=== PATIENT | male | born 1970 | race Caucasian/White ===

== ENCOUNTER → 2018-01-17 | Outpatient (CLI) | payer BC ==
--- NOTE | 2018-01-17 13:29 | US ---
EXAMINATION TYPE: US kidneys/renal and bladder DATE OF EXAM: 01/17/2018 COMPARISON: NONE CLINICAL HISTORY: N28.1 CYST OF KIDNEY. Known renal cysts, no symptoms EXAM MEASUREMENTS: Right Kidney: 12.4 x 5.9 x 7.1 cm Left Kidney: 13.9 x 6.6 x 6.3 cm Right Kidney: multiple cysts seen, measured largest for comparison from previous study, superior pole = 3.7cm Left Kidney: multiple cyst seen, measured largest for comparison from previous study, lower 6.5cm Bladder: wnl Bilateral Jets seen: Yes There is no evidence for hydronephrosis at this point in time. No nephrolithiasis is seen. The urin iman bladder is anechoic. Bilateral ureteral jets are seen. Hepatic cysts are incidentally identified . IMPRESSION: Multiple bilateral renal cysts. The largest on the left measures 6.5 cm and previously measured 5.5 c m and the largest on the right measures 3.7 cm and previously measured 2.9 cm. Other smaller renal le sions are also likely cystic although further characterization with enhanced CT is recommended as no recent prior is available for comparison.
== END | disposition home or self-care (01) ==
LOC: RADUSWWP 07:26
PROVIDERS: ATTEND Family Medicine
DX: N28.1 Cyst of kidney, acquired (principal)
CPT/HCPCS: 76770

== ENCOUNTER 2019-05-25 02:40 | Inpatient (IN) | payer BC ==
[2019-05-25] MEDS ORDERED: KETOROLAC 30 MG/ML 1 ML VIAL IVP STA (03:01)
[2019-05-25] MEDS ORDERED: ONDANSETRON 4 MG/2 ML VIAL IVP STA (03:01)
[2019-05-25] MEDS ORDERED: SODIUM CHLORIDE 0.9% 1,000 ML IV STA (03:01)
[2019-05-25 03:50] LABS: Basophils % (A) 0 %; Eosinophils # (A) 0.1 k/uL (0-0.7); Eosinophils % (A) 1 %; HCT 44.3 % (39.0-53.0); HGB 16.1 gm/dL (13.0-17.5); Lymphocytes # (A) 1.5 k/uL (1.0-4.8); Lymphocytes % (A) 17 %; MCH 31.6 pg (25.0-35.0); MCHC 36.3 g/dL (31.0-37.0); MCV 87.2 fL (80.0-100.0); Mean Platelet Volume 5.9; Monocytes % (A) 11 %; Neutrophils % (A) 68 %; Platelet Count 206 k/uL (150-450); RBC 5.08 m/uL (4.30-5.90); RDW 12.7 % (11.5-15.5); WBC 8.8 k/uL (3.8-10.6)
[2019-05-25 03:55] LABS: Appearance,Urine Clear (Clear); Bilirubin,Urine Negative (Negative); Blood,Urine Moderate (Negative); Color,Urine Light Yellow; Glucose,Urine (UA) Negative (Negative); Ketones,Urine Negative (Negative); Leukocyte Esterase,Urine Negative (Negative); Mucus,Urine Rare /hpf; Nitrite,Urine Negative (Negative); Protein,Urine Negative (Negative); RBC,Urine 3 /hpf (0-5); Specific Gravity,Urine 1.008 (1.001-1.035); Urobilinogen,Urine <2.0 mg/dL (<2.0); WBC,Urine <1 /hpf (0-5)
--- NOTE | 2019-05-25 04:01 | ED ---
Abdominal Pain HPI - General Source: patient Mode of arrival: ambulatory Limitations: no limitations <Carmenza Han - Last Filed: 05/25/19 18:29> <Arturo Cifuentes - Last Filed: 05/28/19 03:02> - General Chief Complaint: Abdominal Pain Stated Complaint: R Abd/ Back Pain Time Seen by Provider: 05/25/19 02:58 - History of Present Illness Initial Comments: 49-year-old male presenting today for chief complaint of right-sided flank pain. Patient states that around 11 PM he began experiencing left-sided flank pain. He states he did have some symptoms earlier and dark colored urine however he thought this was due to dehydration. Patient denies chest pain, SOB. Patient denies diarrhea, vomiting, fevers. Patient denies abdominal pain. Remaining ROS (-), denies trauma falls. BP elevated on arrival patient appears uncomfortable. (Carmenza Han) - Related Data Home Medications Medication Instructions Recorded Confirmed Catalyn Multivitamin 1 tab PO DAILY 05/25/19 05/25/19 Lisinopril [Zestril] 10 mg PO DAILY 05/25/19 05/25/19 Metoprolol Succinate (ER) [Toprol 100 mg PO DAILY 05/25/19 05/25/19 Xl] [place]-3 Fatty Acids/Fish Oil [Fish 1 tab PO DAILY 05/25/19 05/25/19 Oil 1,000 mg Softgel] Pantoprazole [Protonix] 40 mg PO DAILY 05/25/19 05/25/19 Renafood Supplement 1 tab PO DAILY 05/25/19 05/25/19 Allergies Allergy/AdvReac Type Severity Reaction Status Date / Time No Known Allergies Allergy Verified 05/25/19 08:12 Review of Systems ROS Other: All systems not noted in ROS Statement are negative. <Carmenza Han - Last Filed: 05/25/19 18:29> ROS Other: All systems not noted in ROS Statement are negative. <Arturo Cifuentes - Last Filed: 05/28/19 03:02> ROS Statement: Those systems with pertinent positive or pertinent negative responses have been documented in the HPI. Past Medical History Past Medical History: Hypertension Additional Past Medical History / Comment(s): polycystic kidney disease History of Any Multi-Drug Resistant Organisms: None Reported Past Surgical History: Bowel Resection Past Psychological History: No Psychological Hx Reported Smoking Status: Never smoker Past Alcohol Use History: Occasional Past Drug Use History: None Reported - Past Family History Father Family Medical History: Cancer Additional Family Medical History / Comment(s): <Carmenza Han Becky - Last Filed: 05/25/19 18:29> General Exam Limitations: no limitations <Carmenza Han - Last Filed: 05/25/19 18:29> - General Exam Comments Initial Comments: General: The patient is awake and alert, in no distress, and does not appear acutely ill. Eye: +3 mm pupils are equal, round and reactive to light, extra-ocular movements are intact. No nystagmus. There is normal conjunctiva bilaterally. No signs of icterus. Ears, nose, mouth and throat: There are moist mucous membranes and no oral lesions. Neck: The neck is supple, there is no tenderness or JVD. Cardiovascular: There is a regular rate and rhythm. No murmur, rub or gallop is appreciated. Respiratory: Lungs are clear to auscultation, respirations are non-labored, breath sounds are equal. No wheezes, stridor, rales, or rhonchi. Gastrointestinal: Soft, non-distended, non-tender abdomen without masses or organomegaly noted. There is no rebound or guarding present. No CVA tenderness. Musculoskeletal: Normal ROM, no tenderness. Strength 5/5. Sensation intact. Radial pulses equal bilaterally 2+. Neurological: A&O x 3. CN II-XII intact grossly, There are no obvious motor or sensory deficits. Coordination appears grossly intact. Speech is normal. Skin: Skin is warm and dry and no rashes or lesions are noted. Psychiatric: Cooperative, appropriate mood & affect, normal judgment. (Carmenza Han) Course Vital Signs 05/25/19 05/25/19 02:50 03:59 Temperature 97.5 F L Pulse Rate 89 92 Respiratory 20 18 Rate Blood Pressure 165/104 135/89 O2 Sat by Pulse 98 96 Oximetry Medical Decision Making - Lab Data Result diagrams: 05/25/19 03:18 05/25/19 03:18 <Carmenza Han - Last Filed: 05/25/19 18:29> - Lab Data Result diagrams: 05/25/19 03:18 05/27/19 06:51 <Arturo Cifuentes - Last Filed: 05/28/19 03:02> - Medical Decision Making 49-year-old male history of polycystic kidney disease presenting today for chief complaint of flank pain patient given Toradol. This relieved pain CT revealed numerous stones however none appear to be in the ureters. Cysts noted as well. No other acute process. Patient Cr found to be nearly double that of baseline as well as increase in BUN. Patient given IVF, will be admitted for DANTE, repeat CMP after hydration. Dr. Cifuentes agreeable to admission as well as patient. (Carmenza Han) I saw this patient in conjunction with the physician teachers assistant. I performed independent history and physical exam. Agree with case management. (Arturo Sutherland) - Lab Data Lab Results 05/25/19 05/25/19 05/25/19 Range/Units 03:18 03:18 03:18 WBC 8.8 (3.8-10.6) k/uL RBC 5.08 (4.30-5.90) m/uL Hgb 16.1 (13.0-17.5) gm/dL Hct 44.3 (39.0-53.0) % MCV 87.2 (80.0-100.0) fL MCH 31.6 (25.0-35.0) pg MCHC 36.3 (31.0-37.0) g/dL RDW 12.7 (11.5-15.5) % Plt Count 206 (150-450) k/uL Neutrophils % 68 % Lymphocytes % 17 % Monocytes % 11 % Eosinophils % 1 % Basophils % 0 % Neutrophils # 6.0 (1.3-7.7) k/uL Lymphocytes # 1.5 (1.0-4.8) k/uL Monocytes # 1.0 (0-1.0) k/uL Eosinophils # 0.1 (0-0.7) k/uL Basophils # 0.0 (0-0.2) k/uL Sodium 137 (137-145) mmol/L Potassium 4.0 (3.5-5.1) mmol/L Chloride 102 (98-107) mmol/L Carbon Dioxide 23 (22-30) mmol/L Anion Gap 12 mmol/L BUN 45 H (9-20) mg/dL Creatinine 2.58 H (0.66-1.25) mg/dL Est GFR (CKD-EPI)AfAm 32 (>60 ml/min/1.73 sqM) Est GFR (CKD-EPI)NonAf 28 (>60 ml/min/1.73 sqM) Glucose 141 H (74-99) mg/dL Calcium 9.1 (8.4-10.2) mg/dL Total Bilirubin 1.0 (0.2-1.3) mg/dL AST 39 (17-59) U/L ALT 75 H (21-72) U/L Alkaline Phosphatase 89 (38-126) U/L Troponin I (0.000-0.034) ng/mL Total Protein 7.3 (6.3-8.2) g/dL Albumin 4.3 (3.5-5.0) g/dL Amylase 57 (30-110) U/L Lipase 204 (23-300) U/L Urine Color Light Yellow Urine Appearance Clear (Clear) Urine pH 5.0 (5.0-8.0) Ur Specific [place] 1.008 (1.001-1.035) Urine Protein Negative (Negative) Urine Glucose (UA) Negative (Negative) Urine Ketones Negative (Negative) Urine Blood Moderate H (Negative) Urine Nitrite Negative (Negative) Urine Bilirubin Negative (Negative) Urine Urobilinogen <2.0 (<2.0) mg/dL Ur Leukocyte Esterase Negative (Negative) Urine RBC 3 (0-5) /hpf Urine WBC <1 (0-5) /hpf Urine Mucus Rare H (None) /hpf 05/25/19 05/25/19 05/25/19 Range/Units 11:34 17:47 22:32 WBC (3.8-10.6) k/uL RBC (4.30-5.90) m/uL Hgb (13.0-17.5) gm/dL Hct (39.0-53.0) % MCV (80.0-100.0) fL MCH (25.0-35.0) pg MCHC (31.0-37.0) g/dL RDW (11.5-15.5) % Plt Count (150-450) k/uL Neutrophils % % Lymphocytes % % Monocytes % % Eosinophils % % Basophils % % Neutrophils # (1.3-7.7) k/uL Lymphocytes # (1.0-4.8) k/uL Monocytes # (0-1.0) k/uL Eosinophils # (0-0.7) k/uL Basophils # (0-0.2) k/uL Sodium 138 (137-145) mmol/L Potassium 4.1 (3.5-5.1) mmol/L Chloride 109 H (98-107) mmol/L Carbon Dioxide 21 L (22-30) mmol/L Anion Gap 8 mmol/L BUN 41 H (9-20) mg/dL Creatinine 2.94 H (0.66-1.25) mg/dL Est GFR (CKD-EPI)AfAm 27 (>60 ml/min/1.73 sqM) Est GFR (CKD-EPI)NonAf 24 (>60 ml/min/1.73 sqM) Glucose 113 H (74-99) mg/dL Calcium 8.4 (8.4-10.2) mg/dL Total Bilirubin (0.2-1.3) mg/dL AST (17-59) U/L ALT (21-72) U/L Alkaline Phosphatase (38-126) U/L Troponin I <0.012 <0.012 (0.000-0.034) ng/mL Total Protein (6.3-8.2) g/dL Albumin (3.5-5.0) g/dL Amylase (30-110) U/L Lipase (23-300) U/L Urine Color Urine Appearance (Clear) Urine pH (5.0-8.0) Ur Specific [place] (1.001-1.035) Urine Protein (Negative) Urine Glucose (UA) (Negative) Urine Ketones (Negative) Urine Blood (Negative) Urine Nitrite (Negative) Urine Bilirubin (Negative) Urine Urobilinogen (<2.0) mg/dL Ur Leukocyte Esterase (Negative) Urine RBC (0-5) /hpf Urine WBC (0-5) /hpf Urine Mucus (None) /hpf 05/26/19 Range/Units 09:35 WBC (3.8-10.6) k/uL RBC (4.30-5.90) m/uL Hgb (13.0-17.5) gm/dL Hct (39.0-53.0) % MCV (80.0-100.0) fL MCH (25.0-35.0) pg MCHC (31.0-37.0) g/dL RDW (11.5-15.5) % Plt Count (150-450) k/uL Neutrophils % % Lymphocytes % % Monocytes % % Eosinophils % % Basophils % % Neutrophils # (1.3-7.7) k/uL Lymphocytes # (1.0-4.8) k/uL Monocytes # (0-1.0) k/uL Eosinophils # (0-0.7) k/uL Basophils # (0-0.2) k/uL Sodium 140 (137-145) mmol/L Potassium 4.0 (3.5-5.1) mmol/L Chloride 110 H (98-107) mmol/L Carbon Dioxide 22 (22-30) mmol/L Anion Gap 8 mmol/L BUN 36 H (9-20) mg/dL Creatinine 3.10 H (0.66-1.25) mg/dL Est GFR (CKD-EPI)AfAm 26 (>60 ml/min/1.73 sqM) Est GFR (CKD-EPI)NonAf 22 (>60 ml/min/1.73 sqM) Glucose 121 H (74-99) mg/dL Calcium 8.5 (8.4-10.2) mg/dL Total Bilirubin (0.2-1.3) mg/dL AST (17-59) U/L ALT (21-72) U/L Alkaline Phosphatase (38-126) U/L Troponin I (0.000-0.034) ng/mL Total Protein (6.3-8.2) g/dL Albumin (3.5-5.0) g/dL Amylase (30-110) U/L Lipase (23-300) U/L Urine Color Urine Appearance (Clear) Urine pH (5.0-8.0) Ur Specific [place] (1.001-1.035) Urine Protein (Negative) Urine Glucose (UA) (Negative) Urine Ketones (Negative) Urine Blood (Negative) Urine Nitrite (Negative) Urine Bilirubin (Negative) Urine Urobilinogen (<2.0) mg/dL Ur Leukocyte Esterase (Negative) Urine RBC (0-5) /hpf Urine WBC (0-5) /hpf Urine Mucus (None) /hpf Disposition Is patient prescribed a controlled substance at d/c from ED?: No Time of Disposition: 04:24 <Carmenza Han - Last Filed: 05/25/19 18:29> <Arturo Cifuentes - Last Filed: 05/28/19 03:02> Clinical Impression: DANTE (acute kidney injury) Disposition: ADMITTED IP TO THIS HOSP Condition: Stable
--- NOTE | 2019-05-25 04:02 | CT ---
EXAMINATION TYPE: CT abdomen pelvis wo con DATE OF EXAM: 05/25/2019 COMPARISON: 11/11/2011 HISTORY: right flank pain CT DLP: 1055.4 mGycm Automated exposure control for dose reduction was used. TECHNIQUE: Helical acquisition of images was performed from the lung bases through the pelvis. FINDINGS: There is mild subsegmental atelectasis at the lung bases. There are multiple cysts in the liver that measure up to 3 cm. Gallbladder appears normal. Spleen appears normal. Stomach appears normal. There is no evidence of pancreatic mass. Gallbladder appears normal. There is no adrenal mass. There are numerous cysts in both kidneys. The renal cysts measure up to 6 c m. There are numerous calcifications in both kidneys up to 8 mm. There are small cortical cysts that contain calcium also. The ureters are not dilated. The bladder is almost empty. There is no inguinal hernia. There is no free fluid in the pelvis. There is no mesenteric edema. There is no ascites. Ther e is no sign of free air. The appendix appears normal. There are multiple appendicoliths. There is no evidence of a bowel obstruction. Lumbar vertebra have normal alignment. There is narrowing at L5-S1 disc space. There is no compressio n fracture. Bony pelvis appears intact. IMPRESSION: THERE ARE NUMEROUS HEPATIC AND RENAL CYSTS WHICH ARE INCREASED IN SIZE COMPARED TO OLD CT SCAN. NUMER OUS NONOBSTRUCTING RENAL CALCULI INCREASED COMPARED TO OLD EXAM. NO EVIDENCE OF APPENDICITIS.
[2019-05-25 04:04] LABS: Albumin 4.3 g/dL (3.5-5.0); Calcium 9.1 mg/dL (8.4-10.2); Total Protein 7.3 g/dL (6.3-8.2)
[2019-05-25] MEDS ORDERED: NALOXONE 0.4 MG/ML 1 ML VIAL IV PRN (04:23)
[2019-05-25] MEDS: SODIUM CHLORIDE 0.9% 1,000 ML IV SCH ×2 (04:41→15:10)
[2019-05-25] MEDS: ACETAMINOPHEN TAB 325 MG TAB PO PRN ×3 (09:01→21:40)
[2019-05-25] MEDS ORDERED: FAMOTIDINE 20 MG TAB PO SCH (10:30)
[2019-05-25] MEDS ORDERED: HYDROmorphone 0.5 MG/0.5 ML SYRINGE IVP PRN (11:11)
--- NOTE | 2019-05-25 13:00 | P.HPIM ---
History of Present Illness Patient is a pleasant 49-year-old male came in with complaints of right flank pain sharp in nature severe yesterday presently 2/10 in severity after Tylenol. Patient had an abdominal CAT scan which showed multiple nonobstructing nep hrolithiasis which is probably contributing to his pain additionally patient is found to have poor renal function with serum creatinine of 2.58. His creatinine 2014 was 1.4 I do not have any labs after that. Patient is also complaining of mild noncardiac chest pain because of which are tender troponin and EKG both of which are negative I'll obtain another troponin 6 hours patient pain in the [address] is very minimal sharp nonspecific nonradiating constant has been going on for sometime appears to be musculoskeletal. Patient is also found to have multiple cysts in both bilateral kidneys along with cyst in the liver admits to history of polycystic kidney disease. Review of Systems REVIEW OF SYSTEMS: CONSTITUTIONAL: No fever, no malaise, no fatigue. HEENT: No recent visual problems or hearing problems. Denied any sore throat. CARDIOVASCULAR: No orthopnea, PND, no palpitations, no syncope. PULMONARY: No shortness of breath, no cough, no hemoptysis. GASTROINTESTINAL: As mentioned in HPI NEUROLOGICAL: No headaches, no weakness, no numbness. HEMATOLOGICAL: Denies any bleeding or petechiae. GENITOURINARY: Denies any burning micturition, frequency, or urgency. MUSCULOSKELETAL/RHEUMATOLOGICAL: Denies any joint pain, swelling, or any muscle pain. ENDOCRINE: Denies any polyuria or polydipsia. The rest of the 14-point review of systems is negative. Past Medical History Past Medical History: Hypertension Additional Past Medical History / Comment(s): polycystic kidney disease History of Any Multi-Drug Resistant Organisms: None Reported Past Surgical History: Bowel Resection Past Psychological History: No Psychological Hx Reported Smoking Status: Never smoker Past Alcohol Use History: Occasional Past Drug Use History: None Reported - Past Family History Father Family Medical History: Cancer Additional Family Medical History / Comment(s): Medications and Allergies Home Medications Medication Instructions Recorded Confirmed Type Catalyn Multivitamin 1 tab PO DAILY 05/25/19 05/25/19 History Lisinopril [Zestril] 10 mg PO DAILY 05/25/19 05/25/19 History Metoprolol Succinate (ER) [Toprol 100 mg PO DAILY 05/25/19 05/25/19 History Xl] [place]-3 Fatty Acids/Fish Oil [Fish 1 tab PO DAILY 05/25/19 05/25/19 History Oil 1,000 mg Softgel] Pantoprazole [Protonix] 40 mg PO DAILY 05/25/19 05/25/19 History Renafood Supplement 1 tab PO DAILY 05/25/19 05/25/19 History Allergies Allergy/AdvReac Type Severity Reaction Status Date / Time No Known Allergies Allergy Verified 05/25/19 08:12 Physical Exam Vitals: Vital Signs Temp Pulse Pulse Resp BP BP Pulse Ox 05/25/19 07:20 97.7 F 72 16 168/96 98 05/25/19 03:59 92 18 135/89 96 05/25/19 02:50 97.5 F L 89 20 165/104 98 Intake and Output 05/24/19 05/25/19 05/25/19 22:59 06:59 14:59 Other: Weight 99.79 kg PHYSICAL EXAMINATION: GENERAL: The patient is alert and oriented x3, not in any acute distress. Well developed, well nourished. HEENT: Pupils are round and equally reacting to light. EOMI. No scleral icterus. No conjunctival pallor. Normocephalic, atraumatic. No pharyngeal erythema. No thyromegaly. CARDIOVASCULAR: S1 and S2 present. No murmurs, rubs, or gallops. PULMONARY: Chest is clear to auscultation, no wheezing or crackles. ABDOMEN: Soft, nontender, nondistended, normoactive bowel sounds. No palpable organomegaly. MUSCULOSKELETAL: No joint swelling or deformity. EXTREMITIES: No cyanosis, clubbing, or pedal edema. NEUROLOGICAL: Gross neurological examination did not reveal any focal deficits. SKIN: No rashes. Results CBC & Chem 7: 05/25/19 03:18 05/25/19 03:18 Labs: Abnormal Lab Results - Last 24 Hours (Table) 05/25/19 05/25/19 Range/Units 03:18 03:18 BUN 45 H (9-20) mg/dL Creatinine 2.58 H (0.66-1.25) mg/dL Glucose 141 H (74-99) mg/dL ALT 75 H (21-72) U/L Urine Blood Moderate H (Negative) Urine Mucus Rare H (None) /hpf Thrombosis Risk Factor Assmnt - Choose All That Apply Each Factor Represents 1 point: Age 41-60 years, Obesity (BMI >25) Other Risk Factors: No Other congenital or acquired thrombophilia - If yes, enter type in comment: No Thrombosis Risk Factor Assessment Total Risk Factor Score: 2 Thrombosis Risk Factor Assessment Level: Low Risk Assessment and Plan Plan: -Right flank pain probably secondary to nephrolithiasis patient has nonobstructive stones will continue with IV fluids continue with Tylenol and hydromorphone for pain and avoid morphine and nonsteroidal anti-inflammatory medications because of his renal dysfunction. -Renal failure: Patient most probably has chronic kidney disease from polycystic kidney disease unsure whether patient has a competent of acute renal failure, continue with IV fluids nephrology will be consulted. 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
[2019-05-25] MEDS: LISINOPRIL 10 MG TAB PO SCH (15:49)
--- NOTE | 2019-05-25 22:44 | P.GSCN ---
History of Present Illness Consult date: 05/25/19 Reason for Consult: polycystic kidney disease, nephrolithiasis History of present illness: Mr. Lerma is 49 yo male, admitted to the hospital with a DANTE and right flank pain. He indicated the right flank pain has been sudden in onset and is associated with nausea without vomiting. Of note he has history of nephrolithiasis and he believes that he passed a stone approximately a month ago. He also has a known history of polycystic kidney disease, on admission his creatinine was 2.58, his last known creatinine was 1.41 back in 2013. Today on evaluation he complains of mild flank pain, indicated it is improved compared to presentation. He denies any urinary symptoms. Review of CT showed multiple bilateral renal cysts, he also has a 5 mm proximal ureteral stone on the right side with mild right-sided hydronephrosis Review of Systems - Constitutional Denies chills, Denies fever - EENT Ears, nose, mouth and throat: Denies headache, Denies voice changes - Cardiovascular Denies dyspnea on exertion, Denies leg edema - Respiratory Denies cough, Denies dyspnea - Gastrointestinal Reports abdominal pain, Reports nausea, Denies vomiting - Genitourinary Reports flank pain, Reports kidney stones, Denies dysuria, Denies hematuria - Neurological Denies confusion, Denies weakness Past Medical History Past Medical History: Hypertension Additional Past Medical History / Comment(s): polycystic kidney disease History of Any Multi-Drug Resistant Organisms: None Reported Past Surgical History: Bowel Resection Past Psychological History: No Psychological Hx Reported Smoking Status: Never smoker Past Alcohol Use History: Occasional Past Drug Use History: None Reported - Past Family History Father Family Medical History: Cancer Additional Family Medical History / Comment(s): Medications and Allergies Home Medications Medication Instructions Recorded Confirmed Type Catalyn Multivitamin 1 tab PO DAILY 05/25/19 05/25/19 History Lisinopril [Zestril] 10 mg PO DAILY 05/25/19 05/25/19 History Metoprolol Succinate (ER) [Toprol 100 mg PO DAILY 05/25/19 05/25/19 History Xl] [place]-3 Fatty Acids/Fish Oil [Fish 1 tab PO DAILY 05/25/19 05/25/19 History Oil 1,000 mg Softgel] Pantoprazole [Protonix] 40 mg PO DAILY 05/25/19 05/25/19 History Renafood Supplement 1 tab PO DAILY 05/25/19 05/25/19 History Allergies Allergy/AdvReac Type Severity Reaction Status Date / Time No Known Allergies Allergy Verified 05/25/19 08:12 Surgical - Exam Vital Signs Temp Pulse Resp BP Pulse Ox 97.5 F L 89 20 165/104 98 05/25/19 02:50 05/25/19 02:50 05/25/19 02:50 05/25/19 02:50 05/25/19 02:50 - General well developed, well nourished, no distress - ENT normal mucosa, no hearing loss - Respiratory normal expansion, normal respiratory effort - Musculoskeletal normal gait, normal posture - Psychiatric oriented to time, oriented to person, oriented to place Results - Labs 05/25/19 03:18 05/25/19 03:18 Abnormal Lab Results - Last 24 Hours (Table) 05/25/19 05/25/19 Range/Units 03:18 03:18 BUN 45 H (9-20) mg/dL Creatinine 2.58 H (0.66-1.25) mg/dL Glucose 141 H (74-99) mg/dL ALT 75 H (21-72) U/L Urine Blood Moderate H (Negative) Urine Mucus Rare H (None) /hpf Diabetes panel 05/25/19 Range/Units 03:18 Sodium 137 (137-145) mmol/L Potassium 4.0 (3.5-5.1) mmol/L Chloride 102 (98-107) mmol/L Carbon Dioxide 23 (22-30) mmol/L BUN 45 H (9-20) mg/dL Creatinine 2.58 H (0.66-1.25) mg/dL Glucose 141 H (74-99) mg/dL Calcium 9.1 (8.4-10.2) mg/dL AST 39 (17-59) U/L ALT 75 H (21-72) U/L Alkaline Phosphatase 89 (38-126) U/L Total Protein 7.3 (6.3-8.2) g/dL Albumin 4.3 (3.5-5.0) g/dL Calcium panel 05/25/19 Range/Units 03:18 Calcium 9.1 (8.4-10.2) mg/dL Albumin 4.3 (3.5-5.0) g/dL Pituitary panel 05/25/19 Range/Units 03:18 Sodium 137 (137-145) mmol/L Potassium 4.0 (3.5-5.1) mmol/L Chloride 102 (98-107) mmol/L Carbon Dioxide 23 (22-30) mmol/L BUN 45 H (9-20) mg/dL Creatinine 2.58 H (0.66-1.25) mg/dL Glucose 141 H (74-99) mg/dL Calcium 9.1 (8.4-10.2) mg/dL Adrenal panel 05/25/19 Range/Units 03:18 Sodium 137 (137-145) mmol/L Potassium 4.0 (3.5-5.1) mmol/L Chloride 102 (98-107) mmol/L Carbon Dioxide 23 (22-30) mmol/L BUN 45 H (9-20) mg/dL Creatinine 2.58 H (0.66-1.25) mg/dL Glucose 141 H (74-99) mg/dL Calcium 9.1 (8.4-10.2) mg/dL Total Bilirubin 1.0 (0.2-1.3) mg/dL AST 39 (17-59) U/L ALT 75 H (21-72) U/L Alkaline Phosphatase 89 (38-126) U/L Total Protein 7.3 (6.3-8.2) g/dL Albumin 4.3 (3.5-5.0) g/dL - Imaging CT scan - abdomen: other (right sided 5 mm proximal stone with mild hydronephrosis) Assessment and Plan Assessment: Mr. Lerma is 49 yo male admitted with right-sided flank pain and acute kidney injury. Creat 2.58, last creat from 2013 was 1.41. He has a known history of polycystic kidney disease. Review of CT showed a 5 mm right-sided proximal ureteral stone with mild hydronephrosis. Plan: -Repeat BMP tonight, -NPO past MN -If creatinine is trending down and patient pain improves then he can have medical expulsive and can hold off on a ureteral stent. If creatinine is trending up or patient continues to have pain then we'll plan on going to the OR for ureteral stent placement
[2019-05-25 23:17] LABS: Calcium 8.4 mg/dL (8.4-10.2); Potassium 4.1 mmol/L (3.5-5.1)
[2019-05-26] MEDS: SODIUM CHLORIDE 0.9% 1,000 ML IV SCH ×2 (00:08→10:52)
[2019-05-26] MEDS: LISINOPRIL 10 MG TAB PO SCH (07:50)
[2019-05-26] MEDS: FAMOTIDINE 20 MG TAB PO SCH (07:50)
[2019-05-26] MEDS: METOPROLOL SUCCINATE (ER) 100 MG TAB.ER.24H PO SCH (07:50)
[2019-05-26] MEDS: ACETAMINOPHEN TAB 325 MG TAB PO PRN ×3 (07:57→23:20)
[2019-05-26 09:59] LABS: Calcium 8.5 mg/dL (8.4-10.2)
[2019-05-26] MEDS ORDERED: hydrALAZINE HCL 20 MG/ML 1 ML VIAL IVP PRN (10:36)
--- NOTE | 2019-05-26 10:39 | P.NPCON ---
History of Present Illness - Reason for Consult acute renal failure, chronic renal failure - History of Present Illness Reason for consultation: Acute kidney injury on chronic kidney disease History of present illness: Patient is a 49-year-old male seen in renal consultation for acute kidney injury on chronic kidney disease. Patient has chronic kidney disease stage III with creatinine of 1.4 in May 2016. Etiology is polycystic kidney disease. Patient presented to the hospital due to vomiting and weakness. Patient states his symptoms started Tuesday night. Patient developed right-sided flank pain which also progressively got worse to the point where he came to the hospital night. Patient underwent CAT scan of the abdomen and pelvis which revealed multiple hepatic and renal cysts as well as nonobstructing renal stones. He is being followed by urology. He denies regular use of nonsteroidals. Patient states his mother has polycystic kidney disease and is currently maintained on hemodialysis. No evidence of hypotension. No further vomiting or diarrhea. He is tolerating oral intake. He is receiving IV fluids with normal saline at 100 mL an hour. No abdominal pain. No hematuria or dysuria. Denies fever or chills. Vital signs are stable. General: The patient appeared well nourished and normally developed. HEENT: Head exam is unremarkable. Neck is without jugular venous distension. LUNGS: Lungs are clear to auscultation and percussion. Breath sounds decreased. HEART: Rate and Rhythm are regular. First and second heart sounds normal. No murmurs, rubs or gallops. ABDOMEN: Abdominal exam reveals normal bowel sounds. Non-tender and non- distended. No evidence of peritonitis. EXTREMITITES: No clubbing, cyanosis, or edema. Past Medical History Past Medical History: Hypertension Additional Past Medical History / Comment(s): polycystic kidney disease History of Any Multi-Drug Resistant Organisms: None Reported Past Surgical History: Bowel Resection Past Psychological History: No Psychological Hx Reported Smoking Status: Never smoker Past Alcohol Use History: Occasional Past Drug Use History: None Reported - Past Family History Father Family Medical History: Cancer Additional Family Medical History / Comment(s): Medications and Allergies Home Medications Medication Instructions Recorded Confirmed Type Catalyn Multivitamin 1 tab PO DAILY 05/25/19 05/25/19 History Lisinopril [Zestril] 10 mg PO DAILY 05/25/19 05/25/19 History Metoprolol Succinate (ER) [Toprol 100 mg PO DAILY 05/25/19 05/25/19 History Xl] [place]-3 Fatty Acids/Fish Oil [Fish 1 tab PO DAILY 05/25/19 05/25/19 History Oil 1,000 mg Softgel] Pantoprazole [Protonix] 40 mg PO DAILY 05/25/19 05/25/19 History Renafood Supplement 1 tab PO DAILY 05/25/19 05/25/19 History Allergies Allergy/AdvReac Type Severity Reaction Status Date / Time No Known Allergies Allergy Verified 05/25/19 08:12 Physical Exam Vitals: Vital Signs Temp Pulse Resp BP Pulse Ox 05/26/19 09:15 157/84 05/26/19 07:00 99.0 F 117 H 16 167/109 95 05/26/19 01:19 98.6 F 94 18 156/83 98 05/25/19 19:31 99.2 F 90 18 157/101 95 05/25/19 14:56 97.5 F L 76 12 163/98 98 Intake and Output 05/25/19 05/26/19 05/26/19 22:59 06:59 14:59 Intake Total 1000 Balance 1000 Intake: Intake, IV Titration 1000 Amount Sodium Chloride 0.9% 1, 1000 000 ml @ 100 mls/hr IV . Q10H [facility] Rx#:[id number] Other: Voiding Method Urinal # Voids 3 1 Results - Lab Results Most recent lab results Calcium 8.5 mg/dL (8.4-10.2) 05/26/19 09:35 05/25/19 03:18 05/26/19 09:35 Assessment and Plan Plan: Assessment: 1. Acute kidney injury secondary to ATN secondary to volume depletion. No mention of hydronephrosis noted on CAT scan however he does have bilateral nephrolithiasis. No proteinuria on UA. Creatinine up to 2.1 today. 2. Bilateral nephrolithiasis. Urology following. Potential stent placement this admission. 3. Chronic kidney disease stage III secondary to polycystic kidney disease. Patient's creatinine in May 2016 was 1.4. 4. Hypertension with chronic kidney disease. Plan: I will decrease the rate of normal saline to 75 mL an hour. Discontinue lisinopril. Start amlodipine 5 mg once daily. Add hydralazine 10 mg IV every 4 hours as needed for systolic blood pressure greater than 160. Continue to monitor renal function and urine output. Thank you for the consultation. I will continue to follow the patient with you during his hospital stay.
[2019-05-26] MEDS: amLODIPine 5 MG TAB PO SCH (10:52)
[2019-05-26] MEDS ORDERED: MIDAZOLAM 2 MG/2 ML VIAL ONE (12:30)
[2019-05-26] MEDS ORDERED: IV FLUID CONTINUATION 1,000 ML IV ONE (12:30)
[2019-05-26] MEDS ORDERED: fentaNYL (PF) 50 MCG/ML 2 ML AMP ONE (12:30)
[2019-05-26] MEDS ORDERED: PROPOFOL 10 MG/ML 20 ML VIAL IV ONE (12:30)
[2019-05-26] MEDS ORDERED: ceFAZolin 1,000 MG VIAL ONE (12:30)
[2019-05-26] MEDS ORDERED: LIDOCAINE 1% INJ 10MG/ML (20 ML MDV) ONE (12:30)
[2019-05-26] MEDS ORDERED: SODIUM CHLORIDE 0.9% 100 ML with ceFAZolin 2,000 MG IV ONE ×2 (12:46)
[2019-05-26] MEDS ORDERED: IOPAMIDOL-370 50ML BTL MISCELLANE ONE ×2 (13:12)
[2019-05-26] MEDS ORDERED: LACTATED RINGERS 1,000 ML IV ONE (13:19)
--- NOTE | 2019-05-26 13:46 | P.OP ---
Date of Procedure: 05/26/19 Preoperative Diagnosis: Right ureteral calculi Postoperative Diagnosis: Same Procedure(s) Performed: Cystoscopy, right retrograde pyelogram, ureteral balloon dilation, ureteroscopy, holmium laser lithotripsy, stone basketing, and stent placement Implants: 6-Romanian X 28 cm stent Anesthesia: RAMONA Surgeon: Earl Hendricks Estimated Blood Loss (ml): 5 Pathology: other (stone for analysis) Condition: stable Disposition: floor Indications for Procedure: Mr. Lerma is a 49-year-old male with a 5 mm right proximal ureteral stone. He presented with right-sided flank pain and acute kidney injury. His creatinine continued to trend up since admission, given his continued creatinine rise I discussed with him I recommend that he undergo his ureteroscopy and ureteral stent placement to address his stone and obstruction. I discussed with him the risks including bleeding, infection, injury to the ureter. I also discussed risk of anesthesia. They understood all the risk and agreed to proceed with surgery Operative Findings: Right distal ureteral stone Description of Procedure: The patient was brought to the operating room, general anesthesia was induced. He was prepped and draped in sterile fashion and placed in a dorsal lithotomy position. Cystoscope fitted with a 22 sheath was inserted per urethra cystoscopy was performed which showed no abnormality within the bladder. The right ureteral orifice was intubated with 6-Romanian open-ended catheter, retrograde pyelogram was performed which showed a filling defect in the distal ureter with moderate hydroureteronephrosis. Catheter was removed and a sensor wire was placed. Next a semirigid ureteroscope was inserted per urethra and advanced into the bladder. The ureteroscope could not be advanced up the ureteral orifice the ureteroscope was withdrawn with the wire in place. A ureteral balloon dilator was passed over the wire and the distal ureter was dilated using the balloon dilator. Next a semirigid ureteroscope was reinserted and advanced up the distal ureter the stone was encountered in the distal ureter. Using the holmium laser the stone was fragmented using the laser. The fragments were removed using a stone basket. The fragments were sent for stone analysis. Repeat ureteroscopy showed no residual stone or injury to the ureter. The ureteroscope was withdrawn with the wire in place. Next the cystoscope was backloaded over the wire and a ureteral stent was passed over the wire. The proximal curl was was confirmed on fluoroscopy and the distal curl was confirmed on cystoscopy. The bladder was emptied at the end of the case, the patient was taken to PACU in stable condition
--- NOTE | 2019-05-26 14:24 | FL ---
EXAMINATION TYPE: FL urography retrograde DATE OF EXAM: 05/26/2019 COMPARISON: CT abdomen and pelvis from yesterday. HISTORY: Right renal stone. TECHNIQUE: Fluoroscopy. FINDINGS: Fluoroscopic guidance was provided during retrograde urogram procedure performed by urolog ist. A total of 49 seconds of fluoroscopic time was utilized during the procedure and 2 spot images are acquired. Images acquired show placement of right ureter stent. IMPRESSION: As Above.
[2019-05-26] MEDS ORDERED: amLODIPine 5 MG TAB PO STA (17:51)
--- NOTE | 2019-05-26 18:24 | P.PN ---
Subjective Progress Note Date: 05/26/19 Principal diagnosis: Acute kidney injury Mr. Lerma is a 49-year-old male came in with complaints of right flank pain sharp in nature severe yesterday presently 2/10 in severity after Tylenol. Patient had an abdominal CAT scan which showed multiple nonobstructing nephrolithiasis which is probably contributing to his pain additionally patient is found to have poor renal function with serum creatinine of 2.58. His creatinine 2014 was 1.4 I do not have any labs after that. Patient is also complaining of mild noncardiac chest pain because of which are tender troponin and EKG both of which are negative I'll obtain another troponin 6 hours patient pain in the chest is very minimal sharp nonspecific nonradiating constant has been going on for sometime appears to be musculoskeletal. Patient is also found to have multiple cysts in both bilateral kidneys along with cyst in the liver admits to history of polycystic kidney disease. On 05/26/2019- patient had cystoscopy and right retro-great Casas gram with ureteral balloon dilatation, stone basketing and stent placement. Patient is comfortably sitting in bed with his family members at bedside. Patient denies having any flank pain. He has hematuria. No dysuria or increased frequency of urination. No chest pain or palpitations. No fevers chills or rigors. No bowel pain nausea vomiting or diarrhea. No cough or difficulty in breathing. Patient's labs and medications have been reviewed. Active Medications Acetaminophen (Tylenol Tab) 650 mg PO Q6HR PRN PRN Reason: Mild Pain or Fever > 100.5 Last Admin: 05/26/19 17:59 Dose: 650 mg Documented by: Amlodipine Besylate (Norvasc) 5 mg PO DAILY [facility] Last Admin: 05/26/19 10:52 Dose: 5 mg Documented by: Famotidine (Pepcid) 20 mg PO DAILY [facility] Last Admin: 05/26/19 07:50 Dose: 20 mg Documented by: Hydralazine HCl (Apresoline) 10 mg IVP Q4HR PRN PRN Reason: Blood Pressure - High Hydromorphone HCl (Dilaudid) 0.5 mg IVP Q4HR PRN PRN Reason: Pain Last Admin: 05/26/19 04:23 Dose: 0.5 mg Documented by: Sodium Chloride (Saline 0.9%) 1,000 mls @ 75 mls/hr IV .[id number] [facility] Last Admin: 05/26/19 10:52 Dose: 75 mls/hr Documented by: Metoprolol Succinate (Toprol Xl) 100 mg PO DAILY [facility] Last Admin: 05/26/19 07:50 Dose: 100 mg Documented by: Naloxone HCl (Narcan) 0.2 mg IV Q2M PRN PRN Reason: Opioid Reversal Tamsulosin HCl (Flomax) 0.4 mg PO DAILY [facility] Objective - Vital Signs Vital signs: Vital Signs Temp 98.3 F 05/26/19 15:00 Pulse 78 05/26/19 15:00 Resp 16 05/26/19 16:00 BP 173/98 05/26/19 15:00 Pulse Ox 97 05/26/19 15:00 Intake & Output 05/25/19 05/26/19 05/26/19 18:59 06:59 18:59 Intake Total 1000 1700 Balance 1000 1700 Intake: IV 1100 Intake, IV Titration 1000 600 Amount Sodium Chloride 0.9% 1, 1000 600 000 ml @ 75 mls/hr IV . [id number] [facility] Rx#:[id number] Other: Voiding Method Urinal Urinal # Voids 2 3 2 - Exam PHYSICAL EXAMINATION: GENERAL: The patient is alert and oriented x3, not in any acute distress. Well developed, well nourished. HEENT: No pallor. No icterus. CARDIOVASCULAR: S1 and S2 present. No murmurs, rubs, or gallops. PULMONARY: Chest is clear to auscultation, no wheezing or crackles. ABDOMEN: Soft, nontender, nondistended, normoactive bowel sounds. No palpable organomegaly. MUSCULOSKELETAL: No joint swelling or deformity. EXTREMITIES: No cyanosis, clubbing, or pedal edema. NEUROLOGICAL: Gross neurological examination did not reveal any focal deficits. SKIN: No rashes. - Labs CBC & Chem 7: 05/25/19 03:18 05/26/19 09:35 Labs: Abnormal Lab Results - Last 24 Hours (Table) 05/25/19 05/26/19 Range/Units 22:32 09:35 Chloride 109 H 110 H (98-107) mmol/L Carbon Dioxide 21 L (22-30) mmol/L BUN 41 H 36 H (9-20) mg/dL Creatinine 2.94 H 3.10 H (0.66-1.25) mg/dL Glucose 113 H 121 H (74-99) mg/dL Assessment and Plan Assessment: ASSESSMENT Right flank pain- due to nephrolithiasis Acute kidney injury Polycystic kidney disease Hypertension PLAN: Patient had cystoscopy and retrograde pyelogram along with stone basketing and stent placement by urology today. Patient does not have the right flank pain any more. Will repeat electrolytes for tomorrow morning. Continue with the current medication regimen. Further recommendations to follow depending on the progress of the patient.
[2019-05-27] MEDS: SODIUM CHLORIDE 0.9% 1,000 ML IV SCH ×2 (03:14→11:26)
[2019-05-27] MEDS: TAMSULOSIN 0.4 MG CAP.ER.24H PO SCH (07:14)
[2019-05-27] MEDS: amLODIPine 5 MG TAB PO SCH (07:14)
[2019-05-27] MEDS: METOPROLOL SUCCINATE (ER) 100 MG TAB.ER.24H PO SCH (07:14)
[2019-05-27] MEDS: FAMOTIDINE 20 MG TAB PO SCH (07:14)
[2019-05-27 08:03] LABS: Calcium 8.6 mg/dL (8.4-10.2); Magnesium 1.8 mg/dL (1.6-2.3); Potassium 4.1 mmol/L (3.5-5.1)
[2019-05-27] MEDS ORDERED: hydrALAZINE HCL 10 MG TAB PO STA (09:45)
--- NOTE | 2019-05-27 12:58 | P.PN ---
Subjective Patient is seen in follow-up for acute kidney injury on chronic kidney disease. Patient has chronic kidney disease stage III with creatinine of 1.4 in May 2016. Etiology is polycystic kidney disease. Patient underwent cystoscopy with right ureteral stent placement yesterday. Renal function is improved. Creatinine 2.17 today. Urine output is good. Denies chest pain or shortness of breath. Oral intake is good. Vital signs are stable. General: The patient appeared well nourished and normally developed. HEENT: Head exam is unremarkable. Neck is without jugular venous distension. LUNGS: Lungs are clear to auscultation and percussion. Breath sounds decreased. HEART: Rate and Rhythm are regular. First and second heart sounds normal. No murmurs, rubs or gallops. ABDOMEN: Abdominal exam reveals normal bowel sounds. Non-tender and non- distended. No evidence of peritonitis. EXTREMITITES: No clubbing, cyanosis, or edema. Objective - Vital Signs Vital signs: Vital Signs Temp 98.6 F 05/27/19 07:30 Pulse 103 H 05/27/19 07:30 Resp 18 05/27/19 07:30 BP 184/119 05/27/19 09:44 Pulse Ox 98 05/27/19 07:30 Intake & Output 05/26/19 05/27/19 05/27/19 18:59 06:59 18:59 Intake Total 1700 Balance 1700 Intake: IV 1100 Intake, IV Titration 600 Amount Sodium Chloride 0.9% 1, 600 000 ml @ 75 mls/hr IV . [id number] [facility] Rx#:[id number] Other: Voiding Method Urinal Urinal # Voids 2 3 - Labs CBC & Chem 7: 05/25/19 03:18 05/27/19 06:51 Labs: Abnormal Lab Results - Last 24 Hours (Table) 05/27/19 Range/Units 06:51 Chloride 111 H (98-107) mmol/L BUN 26 H (9-20) mg/dL Creatinine 2.17 H (0.66-1.25) mg/dL Glucose 104 H (74-99) mg/dL Assessment and Plan Plan: Assessment: 1. Acute kidney injury secondary to ATN secondary to volume depletion and obstructive uropathy. No mention of hydronephrosis noted on CAT scan however he does have bilateral nephrolithiasis. No proteinuria on UA. Creatinine peaked at 3.1 as of yesterday and is down to 2.17 today. 2. Bilateral nephrolithiasis. Urology following. Status post cystoscopy with right ureteral stent placement on May 26. 3. Chronic kidney disease stage III secondary to polycystic kidney disease. Patient's creatinine in May 2016 was 1.4. 4. Hypertension with chronic kidney disease. Blood pressures have been high. Plan: Hep-Lock IV fluids. Discontinued lisinopril. Maintain amlodipine 5 mg once daily. Add hydralazine 25 mg 3 times daily. Hold if systolic blood pressure less than 120. Continue to monitor renal function and urine output. Repeat electrolytes in the morning.
[2019-05-27] MEDS: ACETAMINOPHEN TAB 325 MG TAB PO PRN ×2 (14:13→19:51)
[2019-05-27] MEDS ORDERED: amLODIPine 5 MG TAB PO STA (15:15)
--- NOTE | 2019-05-27 15:32 | P.PN ---
Subjective Progress Note Date: 05/27/19 Principal diagnosis: Acute kidney injury Mr. Lerma is a 49-year-old male came in with complaints of right flank pain sharp in nature severe yesterday presently 2/10 in severity after Tylenol. Patient had an abdominal CAT scan which showed multiple nonobstructing nephrolithiasis which is probably contributing to his pain additionally patient is found to have poor renal function with serum creatinine of 2.58. His creatinine 2014 was 1.4 I do not have any labs after that. Patient is also complaining of mild noncardiac chest pain because of which are tender troponin and EKG both of which are negative I'll obtain another troponin 6 hours patient pain in the chest is very minimal sharp nonspecific nonradiating constant has been going on for sometime appears to be musculoskeletal. Patient is also found to have multiple cysts in both bilateral kidneys along with cyst in the liver admits to history of polycystic kidney disease. On 05/26/2019- patient had cystoscopy and right retro-great Casas gram with ureteral balloon dilatation, stone basketing and stent placement. Patient is comfortably sitting in bed with his family members at bedside. Patient denies having any flank pain. He has hematuria. No dysuria or increased frequency of urination. No chest pain or palpitations. No fevers chills or rigors. No bowel pain nausea vomiting or diarrhea. No cough or difficulty in breathing. On 05/27/2019 - patient is very eager to go home. patient's creatinine has trended down from 3.10-2.17. But on reviewing the patient's blood pressure, his pressures have been running very high. Hydralazine 25 mg 3 times a day has been added to his regimen today by Dr. Hall. His Norvasc has been increased from 5 mg to 10 mg. Patient denies having any chest pain or palpitations. No cough or difficulty in breathing. No abdominal pain nausea vomiting or diarrhea. No dysuria or hematuria. No swelling of his lower extremity. Patient's labs and medications have been reviewed. Active Medications Acetaminophen (Tylenol Tab) 650 mg PO Q6HR PRN PRN Reason: Mild Pain or Fever > 100.5 Last Admin: 05/27/19 14:13 Dose: 650 mg Documented by: Amlodipine Besylate (Norvasc) 10 mg PO DAILY [facility] Famotidine (Pepcid) 20 mg PO DAILY [facility] Last Admin: 05/27/19 07:14 Dose: 20 mg Documented by: Hydralazine HCl (Apresoline) 10 mg IVP Q4HR PRN PRN Reason: Blood Pressure - High Hydralazine HCl (Apresoline) 25 mg PO TID [facility] Hydromorphone HCl (Dilaudid) 0.5 mg IVP Q4HR PRN PRN Reason: Pain Last Admin: 05/26/19 04:23 Dose: 0.5 mg Documented by: Metoprolol Succinate (Toprol Xl) 100 mg PO DAILY [facility] Last Admin: 05/27/19 07:14 Dose: 100 mg Documented by: Naloxone HCl (Narcan) 0.2 mg IV Q2M PRN PRN Reason: Opioid Reversal Tamsulosin HCl (Flomax) 0.4 mg PO DAILY [facility] Last Admin: 05/27/19 07:14 Dose: 0.4 mg Documented by: Objective - Vital Signs Vital signs: Vital Signs Temp 98.4 F 05/27/19 15:18 Pulse 87 05/27/19 15:18 Resp 17 05/27/19 15:18 BP 162/99 05/27/19 15:18 Pulse Ox 99 05/27/19 15:18 Intake & Output 05/26/19 05/27/19 05/27/19 18:59 06:59 18:59 Intake Total 1700 Balance 1700 Intake: IV 1100 Intake, IV Titration 600 Amount Sodium Chloride 0.9% 1, 600 000 ml @ 75 mls/hr IV . [id number] [facility] Rx#:[id number] Other: Voiding Method Urinal Urinal # Voids 2 3 - Exam PHYSICAL EXAMINATION: GENERAL: The patient is alert and oriented x3, not in any acute distress. Well developed, well nourished. HEENT: No pallor. No icterus. CARDIOVASCULAR: S1 and S2 present. No murmurs, rubs, or gallops. PULMONARY: Chest is clear to auscultation, no wheezing or crackles. ABDOMEN: Soft, nontender, nondistended, normoactive bowel sounds. No palpable organomegaly. MUSCULOSKELETAL: No joint swelling or deformity. EXTREMITIES: No cyanosis, clubbing, or pedal edema. NEUROLOGICAL: Gross neurological examination did not reveal any focal deficits. - Labs CBC & Chem 7: 05/25/19 03:18 05/27/19 06:51 Labs: Abnormal Lab Results - Last 24 Hours (Table) 05/27/19 Range/Units 06:51 Chloride 111 H (98-107) mmol/L BUN 26 H (9-20) mg/dL Creatinine 2.17 H (0.66-1.25) mg/dL Glucose 104 H (74-99) mg/dL Assessment and Plan Assessment: ASSESSMENT Right flank pain- due to nephrolithiasis Acute kidney injury - creatinine trending down Polycystic kidney disease Hypertension PLAN: Patient had cystoscopy and retrograde pyelogram along with stone basketing and stent placement by urology yesterday. Patient does not have the right flank pain any more. Patient's creatinine is trending down. But patient's blood pressure has been running on the higher side so Norvasc has been increased and he was also started on hydralazine 20 family grams 3 times a day by nephrology. We'll monitor his blood pressure closely and anticipate discharge in the next 24 hours.
[2019-05-27] MEDS: hydrALAZINE HCL 25 MG TAB PO SCH ×2 (15:50→21:07)
--- NOTE | 2019-05-27 17:06 | P.PN ---
Subjective Progress Note Date: 05/27/19 Principal diagnosis: right ureteral calculi status post right ureteral stent placements, no acute overnight events area. Denies any flank pain, no urinary issues. his creatinine is trending down, down to 2.17 Objective - Vital Signs Vital signs: Vital Signs Temp 98.4 F 05/27/19 15:18 Pulse 87 05/27/19 15:18 Resp 17 05/27/19 15:18 BP 162/99 05/27/19 15:18 Pulse Ox 99 05/27/19 15:18 Intake & Output 05/26/19 05/27/19 05/27/19 18:59 06:59 18:59 Intake Total 1700 Balance 1700 Intake: IV 1100 Intake, IV Titration 600 Amount Sodium Chloride 0.9% 1, 600 000 ml @ 75 mls/hr IV . [id number] [facility] Rx#:[id number] Other: Voiding Method Urinal Urinal # Voids 2 3 - Constitutional General appearance: Present: no acute distress - Musculoskeletal Musculoskeletal: Present: gait normal. Absent: generalized weakness - Psychiatric Psychiatric: Present: A&O x's 3 - Labs CBC & Chem 7: 05/25/19 03:18 05/27/19 06:51 Labs: Abnormal Lab Results - Last 24 Hours (Table) 05/27/19 Range/Units 06:51 Chloride 111 H (98-107) mmol/L BUN 26 H (9-20) mg/dL Creatinine 2.17 H (0.66-1.25) mg/dL Glucose 104 H (74-99) mg/dL Assessment and Plan Assessment: Mr. Lerma is 49 yo male admitted with right-sided flank pain and acute kidney injury. S/P right-sided ureteroscopy and ureteral stent placement. creatinine down to 2.17, denies flank pain or urinary symptoms. Plan: -continue Flomax, he can discharge home on Flomax -Okay for discharge from urology standpoint -Follow up next week for stent removal
[2019-05-28] MEDS: ACETAMINOPHEN TAB 325 MG TAB PO PRN ×3 (04:17→20:39)
[2019-05-28 07:20] LABS: Magnesium 1.7 mg/dL (1.6-2.3); Potassium 3.9 mmol/L (3.5-5.1)
[2019-05-28] MEDS: TAMSULOSIN 0.4 MG CAP.ER.24H PO SCH (09:00)
[2019-05-28] MEDS: amLODIPine 10 MG TAB PO SCH (09:00)
[2019-05-28] MEDS: FAMOTIDINE 20 MG TAB PO SCH ×2 (09:00→20:39)
[2019-05-28] MEDS: hydrALAZINE HCL 25 MG TAB PO SCH (09:00)
[2019-05-28] MEDS: METOPROLOL SUCCINATE (ER) 100 MG TAB.ER.24H PO SCH (09:00)
[2019-05-28] MEDS ORDERED: traZODone HCL 50 MG TAB PO PRN (11:31)
--- NOTE | 2019-05-28 12:18 | P.PN ---
Subjective Patient states flank pain improved has had consultation with urology and nephrology has of stent and placed in the right ureter. Continues with hyp otension blood pressure 170/110 post blood pressure medicine. Asking for cardiology consultation Objective - Vital Signs Vital signs: Vital Signs Temp 98.2 F 05/28/19 07:00 Pulse 88 05/28/19 11:26 Resp 12 05/28/19 07:00 BP 170/101 05/28/19 11:26 Pulse Ox 96 05/28/19 07:00 Intake & Output 05/27/19 05/28/19 05/28/19 18:59 06:59 18:59 Intake Total 960 240 Balance 960 240 Intake: Oral 960 240 Other: Voiding Method Toilet Toilet Urinal Urinal # Voids 3 - Constitutional General appearance: Present: mild distress - EENT Eyes: Present: PERRLA Ears: bilateral: normal - Neck Neck: Present: normal ROM - Respiratory Respiratory: bilateral: CTA - Cardiovascular Rhythm: regular Abnormal Heart Sounds: Present: systolic murmur - Gastrointestinal General gastrointestinal: Present: soft - Integumentary Integumentary: Present: normal - Neurologic Neurologic: Present: CNII-XII intact - Musculoskeletal Musculoskeletal: Present: gait normal - Psychiatric Psychiatric: Present: A&O x's 3, appropriate affect, intact judgment & insight - Labs CBC & Chem 7: 05/25/19 03:18 05/28/19 06:33 Labs: Abnormal Lab Results - Last 24 Hours (Table) 05/28/19 Range/Units 06:33 Chloride 109 H (98-107) mmol/L Carbon Dioxide 21 L (22-30) mmol/L BUN 22 H (9-20) mg/dL Creatinine 1.63 H (0.66-1.25) mg/dL Glucose 132 H (74-99) mg/dL - Imaging and Cardiology CT scan - abdomen: report reviewed Assessment and Plan Plan: Assessment Right flank pain secondary to right ureteral calculus post stent Renal failures stage III acute on chronic Polycystic kidney disease Hypertension Plan Consultation with cardiology regarding hypertension
--- NOTE | 2019-05-28 14:39 | P.PN ---
Subjective Patient is seen in follow-up for acute kidney injury on chronic kidney disease. Patient has chronic kidney disease stage III with creatinine of 1.4 in May 2016. Etiology is polycystic kidney disease. Patient underwent cystoscopy with right ureteral stent placement on May 26. Renal function is improved. Creatinine 1.60 today. Urine output is good. Denies chest pain or shortness of breath. Oral intake is good. Blood pressure has been elevated. Vital signs are stable. General: The patient appeared well nourished and normally developed. HEENT: Head exam is unremarkable. Neck is without jugular venous distension. LUNGS: Lungs are clear to auscultation and percussion. Breath sounds decreased. HEART: Rate and Rhythm are regular. First and second heart sounds normal. No murmurs, rubs or gallops. ABDOMEN: Abdominal exam reveals normal bowel sounds. Non-tender and non- distended. No evidence of peritonitis. EXTREMITITES: No clubbing, cyanosis, or edema. Objective - Vital Signs Vital signs: Vital Signs Temp 98.2 F 05/28/19 07:00 Pulse 88 05/28/19 11:26 Resp 12 05/28/19 07:00 BP 170/101 05/28/19 11:26 Pulse Ox 96 05/28/19 07:00 Intake & Output 05/27/19 05/28/19 05/28/19 18:59 06:59 18:59 Intake Total 960 240 Balance 960 240 Intake: Oral 960 240 Other: Voiding Method Toilet Toilet Urinal Urinal # Voids 3 - Labs CBC & Chem 7: 05/25/19 03:18 05/28/19 06:33 Labs: Abnormal Lab Results - Last 24 Hours (Table) 05/28/19 Range/Units 06:33 Chloride 109 H (98-107) mmol/L Carbon Dioxide 21 L (22-30) mmol/L BUN 22 H (9-20) mg/dL Creatinine 1.63 H (0.66-1.25) mg/dL Glucose 132 H (74-99) mg/dL Assessment and Plan Plan: Assessment: 1. Acute kidney injury secondary to ATN secondary to volume depletion and obstructive uropathy. No mention of hydronephrosis noted on CAT scan however he does have bilateral nephrolithiasis. No proteinuria on UA. Creatinine peaked at 3.1 this admission and is down to 1.63 today. 2. Bilateral nephrolithiasis. Urology following. Status post cystoscopy with right ureteral stent placement on May 26. 3. Chronic kidney disease stage III secondary to polycystic kidney disease. Patient's creatinine in May 2016 was 1.4. 4. Hypertension with chronic kidney disease. Blood pressures have been high. Patient admits to white coat syndrome and anxiety. Plan: Hep-Lock IV fluids. Discontinued lisinopril. Increase hydralazine to 50 mg 3 times a day. Continue to monitor renal function and urine output. Repeat electrolytes in the morning. Anticipate discharge soon. Follow up outpatient in the next 1-2 weeks.
[2019-05-28] MEDS: hydrALAZINE HCL 50 MG TAB PO SCH ×2 (15:00→20:39)
[2019-05-29] MEDS: amLODIPine 10 MG TAB PO SCH (07:51)
[2019-05-29] MEDS: hydrALAZINE HCL 50 MG TAB PO SCH (07:51)
[2019-05-29] MEDS: TAMSULOSIN 0.4 MG CAP.ER.24H PO SCH (07:51)
[2019-05-29] MEDS: METOPROLOL SUCCINATE (ER) 100 MG TAB.ER.24H PO SCH (07:51)
[2019-05-29] MEDS: FAMOTIDINE 20 MG TAB PO SCH (07:51)
[2019-05-29 07:57] VITALS: BP 162/96; PULSE 100; RESP 16; TEMP 98.7
[2019-05-29] MEDS: ACETAMINOPHEN TAB 325 MG TAB PO PRN (09:36)
[2019-05-29] MEDS ORDERED: hydrALAZINE HCL 25 MG TAB PO STA (10:51)
--- NOTE | 2019-05-29 10:57 | ECHOF ---
Referral Reason:htn uncontrolled, cp MEASUREMENTS -------- HEIGHT: 182.9 cm WEIGHT: 99.8 kg BP: 170/115 RVIDd: 3.5 cm (< 3.3) IVSd: 1.0 cm (0.6 - 1.1) LVIDd: 5.1 cm (3.9 - 5.3) LVPWd: 1.0 cm (0.6 - 1.1) IVSs: 1.4 cm LVIDs: 2.9 cm LVPWs: 1.5 cm LA Diam: 3.7 cm (2.7 - 3.8) LAESV Index (A-L): 25.91 ml/m Ao Diam: 3.1 cm (2.0 - 3.7) AV Cusp: 2.0 cm (1.5 - 2.6) LA Diam: 3.9 cm (2.7 - 3.8) MV EXCURSION: 22.451 mm (> 18.000) MV EF SLOPE: 87 mm/s (70 - 150) EPSS: 0.3 cm MV E Mj: 0.47 m/s MV DecT: 147 ms MV A Mj: 0.79 m/s MV E/A Ratio: 0.59 RAP: 5.00 mmHg RVSP: 21.64 mmHg FINDINGS -------- Sinus rhythm. This was a technically good study. LV size, wall thickness and systolic function are normal, with an EF greater than 55%. The left kristopher tricular size is normal. The diastolic filling pattern is normal for the age of the patient 8.38. The right ventricle is normal in size. The left atrial size is normal. The right atrial size is normal. The aortic valve is trileaflet, and appears structurally normal. No aortic stenosis or regurgitation. Mild mitral annular calcification present. Mild mitral regurgitation is present. Mild tricuspid regurgitation present. Right ventricular systolic pressure is normal at < 35 mmHg. There is no evidence of pulmonary hypertension. There is no pulmonic regurgitation present. The aortic root size is normal. There is no pericardial effusion. CONCLUSIONS -------- 1. Sinus rhythm. 2. This was a technically good study. 3. LV size, wall thickness and systolic function are normal, with an EF greater than 55%. 4. The left ventricular size is normal. 5. The diastolic filling pattern is normal for the age of the patient 8.38 6. The right ventricle is normal in size. 7. The left atrial size is normal. 8. The right atrial size is normal. 9. The aortic valve is trileaflet, and appears structurally normal. No aortic stenosis or regurgitati on. 10. Mild mitral annular calcification present. 11. Mild mitral regurgitation is present. 12. Mild tricuspid regurgitation present. 13. Right ventricular systolic pressure is normal at < 35 mmHg. 14. There is no evidence of pulmonary hypertension. 15. There is no pulmonic regurgitation present. 16. The aortic root size is normal. 17. There is no pericardial effusion. EXTRUDING PRESS ADJUSTER: Shraddha Horton RDCS
--- NOTE | 2019-05-29 12:03 | P.DS ---
Providers Date of admission: 05/26/19 12:58 Expected date of discharge: 05/29/19 Attending physician: Ollie Moore Consults: 05/25/19 10:22 Consult Physician Routine Consulting Provider: Crispin Nagel Consult Reason/Comments: Alexa Do you want consulting provider notified?: Yes 05/25/19 11:12 Consult Physician Routine Consulting Provider: Earl Hendricks Consult Reason/Comments: polycystic kidney/kidney stones Do you want consulting provider notified?: Yes 05/28/19 11:31 Consult Physician Routine Consulting Provider: Ivan Casanova Consult Reason/Comments: Hypertension Do you want consulting provider notified?: Yes Primary care physician: Ollie Moore Hospital Course: 49-year-old male on presented to the emergency room with severe right flank pain was found to have a right ureteral calculi stent was placed by urology. Patient was evaluated and treated by nephrology for acute kidney injury improvement noted. Patient was evaluated by cardiology for persistent hypertension medication adjusted echo normal. Patient is been cleared by urology and nephrology and cardiology for discharge Assessment Right flank pain right ureteral calculi with stent Acute kidney injury Chronic kidney disease from polycystic kidney disease hypertension Plan Patient to follow-up with cardiology have discussed stress test Patient will follow-up with family physician for physical Dr. Ollie Moore Follow-up with urology and nephrology Patient counseled not to use NSAIDs and hold lisinopril Patient Condition at Discharge: Stable Plan - Discharge Summary Discharge Rx Participant: No New Discharge Prescriptions: New hydrALAZINE HCL [Apresoline] 75 mg PO TID #90 tab Tamsulosin [Flomax] 0.4 mg PO DAILY #30 cap.er.24h amLODIPine [Norvasc] 10 mg PO DAILY #30 tab Famotidine [Pepcid] 20 mg PO BID #60 tab Acetaminophen Tab [Tylenol] 650 mg PO Q6HR PRN tab PRN Reason: Mild Pain Or Fever > 100.5 Continue Metoprolol Succinate (ER) [Toprol XL] 100 mg PO DAILY Renafood Supplement 1 tab PO DAILY Catalyn Multivitamin 1 tab PO DAILY Marshall-3 Fatty Acids/Fish Oil [Fish Oil 1,000 mg Softgel] 1 tab PO DAILY Discontinued Lisinopril [Zestril] 10 mg PO DAILY Pantoprazole [Protonix] 40 mg PO DAILY Discharge Medication List Catalyn Multivitamin 1 tab PO DAILY 05/25/19 [History] Metoprolol Succinate (ER) [Toprol XL] 100 mg PO DAILY 05/25/19 [History] Marshall-3 Fatty Acids/Fish Oil [Fish Oil 1,000 mg Softgel] 1 tab PO DAILY 05/25/19 [History] Renafood Supplement 1 tab PO DAILY 05/25/19 [History] Acetaminophen Tab [Tylenol] 650 mg PO Q6HR PRN tab 05/29/19 [Rx] Famotidine [Pepcid] 20 mg PO BID #60 tab 05/29/19 [Rx] Tamsulosin [Flomax] 0.4 mg PO DAILY #30 cap.er.24h 05/29/19 [Rx] amLODIPine [Norvasc] 10 mg PO DAILY #30 tab 05/29/19 [Rx] hydrALAZINE HCL [Apresoline] 75 mg PO TID #90 tab 05/29/19 [Rx] Follow up Appointment(s)/Referral(s): Ollie Moore MD [Primary Care Provider] - 1-2 days Earl Hendricks MD [STAFF PHYSICIAN] - 1 Week Patient Instructions/Handouts: Ureteral Stent Placement (DC), Lithotripsy (DC)
--- NOTE | 2019-05-29 12:13 | P.CRDCN ---
History of Present Illness History of present illness: HISTORY OF PRESENTING ILLNESS This is a pleasant 49-year-old past medical history significant for pretension and polycystic kidney disease. He presented with flank pain. 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 We have been asked to see him in consultation for uncontrolled hypertension. He is seen and examined sitting up in the chair in no acute distress. He initially presented to the hospital on May 25 secondary to flank pain and was found to have a kidney stone with acute kidney injury. He underwent cystoscopy and lithotripsy with stent placement per urology 05/26. On admission he was maintained on lisinopril for his blood pressure. This has been discontinued since admission per nephrology. Currently maintained on hydralazine 50 mg 3 times a day, Toprol 100 mg daily and amlodipine 10 mg daily. Blood pressure this morning 162/96 with heart rate of 100 afebrile maintaining oxygen saturation on room air. He denies chest pain, shortness of breath, dizziness or palpitations. DIAGNOSTICS EKG reveals sinus mechanism. Echocardiogram obtained reveals preserved LV systolic function with ejection fraction 55% normal wall thickness, mild MR and mild TR. Laboratory reviewed, take enzymes negative 2, sodium 142, potassium 3.9, cre atinine 1.63, magnesium 1.7, WBC 8.8, hemoglobin 16.1, platelets 206. REVIEW OF SYSTEMS At the time of my exam: CONSTITUTIONAL: Denies fever or chills. CARDIOVASCULAR: Denies chest pain, shortness of breath, orthopnea, PND or palpitations. RESPIRATORY: Denies cough. GASTROINTESTINAL: Denies abdominal pain, diarrhea, constipation, nausea or vomiting. MUSCULOSKELETAL: Denies myalgias. NEUROLOGIC: Denies numbness, tingling or weakness. ENDOCRINE: Denies fatigue, weight change, polydipsia or polyurina. GENITOURINARY: Denies burning, hematuria or urgency with micturation. HEMATOLOGIC: Denies history of anemia or bleeding. PHYSICAL EXAMINATION CONSTITUTIONAL: No apparent distress. HEENT: Head is normocephalic. Pupils are equal, round. Sclerae anicteric. Mucous membranes of the mouth are moist. No JVD. No carotid bruit. CHEST EXAMINATION: Lungs are clear to auscultation. No chest wall tenderness is noted on palpation or with deep breathing. HEART EXAMINATION: Regular rate and rhythm. S1, S2 heard. No murmurs, gallops or rub. ABDOMEN: Soft, nontender. Positive bowel sounds. EXTREMITIES: 2+ peripheral pulses, no lower extremity edema and no calf tenderness. NEUROLOGIC EXAMINATION: Patient is awake, alert and oriented x3. ASSESSMENT Hypertension, accelerated Acute kidney injury Chronic kidney disease Polycystic kidney disease Renal stone PLAN Increase hydralazine to 75 mg 3 times a day. Echocardiogram requested and reviewed. Advised him to check his blood pressure daily at home and keep a log. Bring the sternal with him to his follow-up appointment the office for further antihypertensive adjustment. Stable for discharge from a cardiac perspective. Thank you kindly for this consultation. Nurse Practitioner note has been reviewed, I agree with a documented findings and plan of care. Patient was seen and examined. Past Medical History Past Medical History: Hypertension Additional Past Medical History / Comment(s): polycystic kidney disease History of Any Multi-Drug Resistant Organisms: None Reported Past Surgical History: Bowel Resection Past Psychological History: No Psychological Hx Reported Smoking Status: Never smoker Past Alcohol Use History: Occasional Past Drug Use History: None Reported - Past Family History Father Family Medical History: Cancer Additional Family Medical History / Comment(s): Medications and Allergies Home Medications Medication Instructions Recorded Confirmed Type Catalyn Multivitamin 1 tab PO DAILY 05/25/19 05/25/19 History Metoprolol Succinate (ER) [Toprol 100 mg PO DAILY 05/25/19 05/25/19 History XL] Dolliver-3 Fatty Acids/Fish Oil [Fish 1 tab PO DAILY 05/25/19 05/25/19 History Oil 1,000 mg Softgel] Renafood Supplement 1 tab PO DAILY 05/25/19 05/25/19 History Acetaminophen Tab [Tylenol] 650 mg PO Q6HR PRN tab 05/29/19 Rx Famotidine [Pepcid] 20 mg PO BID #60 tab 05/29/19 Rx Tamsulosin [Flomax] 0.4 mg PO DAILY #30 cap.er.24h 05/29/19 Rx amLODIPine [Norvasc] 10 mg PO DAILY #30 tab 05/29/19 Rx hydrALAZINE HCL [Apresoline] 75 mg PO TID #90 tab 05/29/19 Rx Allergies Allergy/AdvReac Type Severity Reaction Status Date / Time No Known Allergies Allergy Verified 05/25/19 08:12 Physical Exam Vitals: Vital Signs Temp Pulse Pulse Resp BP Pulse Ox 05/29/19 07:57 98.7 F 100 16 162/96 96 05/28/19 23:37 97.8 F 103 H 18 158/90 98 05/28/19 19:39 98.1 F 103 H 18 166/94 97 05/28/19 16:31 156/93 05/28/19 15:00 98.2 F 85 12 170/106 98 Intake and Output 05/28/19 05/29/19 05/29/19 22:59 06:59 14:59 Intake Total 240 Balance 240 Intake: Oral 240 Other: Voiding Method Toilet Toilet Urinal Urinal # Voids 2 2 Results 05/25/19 03:18 05/28/19 06:33 Current Medications Generic Name Dose Route Start Last Admin Trade Name Freq PRN Reason Stop Dose Admin Acetaminophen 650 mg 05/25/19 04:23 05/29/19 09:36 Tylenol Tab PO 650 mg Q6HR PRN Administration Mild Pain or Fever > 100.5 Amlodipine Besylate 10 mg 05/28/19 09:00 05/29/19 07:51 Norvasc PO 10 mg DAILY NURIS Administration Famotidine 20 mg 05/28/19 21:00 05/29/19 07:51 Pepcid PO 20 mg BID NURIS Administration Hydralazine HCl 10 mg 05/26/19 10:36 05/28/19 04:24 Apresoline IVP 10 mg Q4HR PRN Administration Blood Pressure - High Hydralazine HCl 75 mg 05/29/19 16:00 Apresoline PO TID NURIS Hydromorphone HCl 0.5 mg 05/25/19 11:11 05/26/19 04:23 Dilaudid IVP 0.5 mg Q4HR PRN Administration Pain Metoprolol Succinate 100 mg 05/26/19 09:00 05/29/19 07:51 Toprol Xl PO 100 mg DAILY NURIS Administration Naloxone HCl 0.2 mg 05/25/19 04:23 Narcan IV Q2M PRN Opioid Reversal Tamsulosin HCl 0.4 mg 05/27/19 09:00 05/29/19 07:51 Flomax PO 0.4 mg DAILY NURIS Administration Trazodone HCl 50 mg 05/28/19 11:31 05/28/19 22:49 Desyrel PO 50 mg HS PRN Administration Insomnia Intake and Output 05/28/19 05/29/19 05/29/19 22:59 06:59 14:59 Intake Total 240 Balance 240 Intake: Oral 240 Other: Voiding Method Toilet Toilet Urinal Urinal # Voids 2 2 05/25/19 03:18 05/28/19 06:33
[2019-05-29] MEDS ORDERED: hydrALAZINE HCL 25 MG TAB PO SCH (16:00)
--- NOTE | 2019-05-29 20:17 | PN ---
PROGRESS NOTE Patient is seen for followup for acute kidney injury. Renal function has improved, with creatinine down from 3.1 to 1.63 today. Patient feels well. He states he is getting discharged today. On examination this morning, blood pressure was 162/96, heart rate 100 per minute. He is afebrile. EXAMINATION OF THE HEART: S1 and S2. EXAMINATION OF LUNGS: Bilateral breath sounds are heard. ABDOMEN: Soft, non-tender, obese. Examination of lower extremities shows no evidence of edema. CHIEF NURSE EXECUTIVE exam is grossly intact. Labs show sodium 142, potassium 3.9, BUN 22, creatinine 1.63. ASSESSMENT: 1. Acute kidney injury, currently improved, secondary to acute tubular necrosis, volume depletion and obstructive uropathy. 2. Bilateral nephrolithiasis, being followed by Urology, status post right ureteral stent on May 26. 3. Chronic kidney disease, stage III, secondary to polycystic kidney disease. Creatinine at 1.4 in 2016. PLAN: Patient can be discharged. He should follow up as outpatient in about 1 to 2 weeks' time. We will adjust his antihypertensive regimen based on his blood pressure as outpatient. Continue to hold off on JUAN MANUEL inhibitors for now. MMODL / IJN: [id number] /
== END 2019-05-29 13:01 | disposition home or self-care (01) | DRG 660 ==
LOC: EC 02:40 → 4SSUR 05:04 → OBSVTOIN 05-26 12:58
PROVIDERS: ADMIT Family Medicine; ATTEND Family Medicine
PROC: 0T768DZ Dilation of Right Ureter with Intraluminal Device, Via Natural or Artificial Opening Endoscopic (ICD-10-PCS; principal; 2019-05-26 11:30)
PROC: 0TC68ZZ Extirpation of Matter from Right Ureter, Via Natural or Artificial Opening Endoscopic (ICD-10-PCS; principal; 2019-05-26 11:30)
PROC: BT1D1ZZ Fluoroscopy of Right Kidney, Ureter and Bladder using Low Osmolar Contrast (ICD-10-PCS; principal; 2019-05-26 11:30)
DX: N13.2 Hydronephrosis with renal and ureteral calculous obstruction (principal); Q61.2 Polycystic kidney, adult type; N17.0 Acute kidney failure with tubular necrosis; N18.3 Chronic kidney disease, stage 3 (moderate); I12.9 Hypertensive chronic kidney disease with stage 1 through stage 4 chronic kidney disease, or unspecified chronic kidney disease; E66.9 Obesity, unspecified; E86.9 Volume depletion, unspecified; F41.9 Anxiety disorder, unspecified; Z79.899 Other long term (current) drug therapy; Z82.71 Family history of polycystic kidney; Z87.442 Personal history of urinary calculi
CPT/HCPCS: 36415; 74176; 74420; 80048; 80053; 81001; 82150; 82365; 83690; 83735; 84484; 85025; 93005; 93306; 96361; 96374; 96375; 99285

== ENCOUNTER 2019-06-06 20:26 | Observation (INO) | payer BC ==
[2019-06-06] MEDS ORDERED: SODIUM CHLORIDE 0.9% 1,000 ML IV STA ×2 (20:50)
[2019-06-06 21:12] LABS: Basophils % (A) 1 %; Eosinophils # (A) 0.2 k/uL (0-0.7); Eosinophils % (A) 3 %; HCT 41.3 % (39.0-53.0); HGB 14.3 gm/dL (13.0-17.5); Lymphocytes # (A) 1.8 k/uL (1.0-4.8); Lymphocytes % (A) 21 %; MCH 30.8 pg (25.0-35.0); MCHC 34.6 g/dL (31.0-37.0); MCV 89.1 fL (80.0-100.0); Monocytes # (A) 0.5 k/uL (0-1.0); Monocytes % (A) 6 %; Neutrophils # (A) 5.6 k/uL (1.3-7.7); Neutrophils % (A) 68 %; Platelet Count 285 k/uL (150-450); RBC 4.64 m/uL (4.30-5.90); RDW 12.3 % (11.5-15.5); WBC 8.3 k/uL (3.8-10.6)
[2019-06-06 21:24] LABS: Albumin 4.6 g/dL (3.5-5.0); Calcium 9.1 mg/dL (8.4-10.2); Magnesium 1.8 mg/dL (1.6-2.3); Total Bilirubin 1.2 mg/dL (0.2-1.3); Total Protein 7.6 g/dL (6.3-8.2)
--- NOTE | 2019-06-06 21:26 | XR ---
EXAMINATION TYPE: XR chest 2V DATE OF EXAM: 06/06/2019 COMPARISON: 09/02/2012 HISTORY: Dysrhythmia TECHNIQUE: 2 views FINDINGS: Heart and mediastinum are normal. Lungs are clear. Diaphragm is normal. Bony thorax appears normal. IMPRESSION: Normal chest. No change.
[2019-06-06 21:31] LABS: D-Dimer 0.45 mg/L FEU (<0.60); INR 0.9 (<1.2); Prothrombin Time 9.7 sec (9.0-12.0)
--- NOTE | 2019-06-06 21:38 | CT ---
EXAMINATION TYPE: CT brain wo con DATE OF EXAM: 06/06/2019 COMPARISON: None HISTORY: rx to [facility] CT DLP: 1127.4 mGycm Automated exposure control for dose reduction was used. Ventricles have normal size. There is no mass effect nor midline shift. There is no sign of intracran ial hemorrhage. The calvarium is intact. IMPRESSION: Normal head CT scan. No evidence of cerebral edema.
[2019-06-06 21:45] LABS: Partial Thromboplastin Time 20.6 sec (22.0-30.0)
[2019-06-06] MEDS ORDERED: MORPHINE SULFATE 4 MG/ML SYRINGE IVP STA (22:07)
[2019-06-06 22:12] LABS: Appearance,Urine Cloudy (Clear); Bacteria,Urine Rare /hpf; Bilirubin,Urine Negative (Negative); Blood,Urine Moderate (Negative); Color,Urine Light Red; Glucose,Urine (UA) Trace (Negative); Hyaline Casts,Urine 1 /lpf (0-2); Ketones,Urine Negative (Negative); Leukocyte Esterase,Urine Small (Negative); Mucus,Urine Rare /hpf; Nitrite,Urine Negative (Negative); PH, Urine 5.5 (5.0-8.0); Protein,Urine 1+ (Negative); RBC,Urine 39 /hpf (0-5); Specific Gravity,Urine 1.006 (1.001-1.035); Urobilinogen,Urine <2.0 mg/dL (<2.0); WBC,Urine 12 /hpf (0-5)
[2019-06-06] MEDS ORDERED: ACETAMINOPHEN TAB 325 MG TAB PO PRN (23:26)
[2019-06-06] MEDS ORDERED: NALOXONE 0.4 MG/ML 1 ML VIAL IV PRN (23:26)
--- NOTE | 2019-06-06 23:26 | ED ---
General Adult HPI - General Chief complaint: Allergic Reaction Stated complaint: Allergic Reaction Time Seen by Provider: 06/06/19 20:30 Source: patient, family, RN notes reviewed Mode of arrival: ambulatory Limitations: no limitations - History of Present Illness Initial comments: This is a 49-year-old male with polycystic kidney disease any recent right ureteral stent placement also history of hypertension who presents tonight with complaints of a possible ALLERGIC reaction. He states he was on hydralazine he was raised from 75 mg per dose to enter milligrams per dose he states he really flush his heart rate went up he felt some palpitations later also stated he has some left-sided chest pain he points to his left costal sternal margin. States he is doesn't feel right. He also has stated he has some chills recently. He is currently on oral antibiotics after the stent placement he states. Also he has had an episode of some confusion and just not acting his usual self per his . He does relate this to possibly anxiety. No other modifying factors patient denies any alcohol or tobacco use - Related Data Home Medications Medication Instructions Recorded Confirmed Catalyn Multivitamin 1 tab PO DAILY 05/25/19 05/25/19 Metoprolol Succinate (ER) [Toprol 100 mg PO DAILY 05/25/19 05/25/19 XL] [place]-3 Fatty Acids/Fish Oil [Fish 1 tab PO DAILY 05/25/19 05/25/19 Oil 1,000 mg Softgel] Renafood Supplement 1 tab PO DAILY 05/25/19 05/25/19 Previous Rx's Medication Instructions Recorded Acetaminophen Tab [Tylenol] 650 mg PO Q6HR PRN tab 05/29/19 Famotidine [Pepcid] 20 mg PO BID #60 tab 05/29/19 Tamsulosin [Flomax] 0.4 mg PO DAILY #30 cap.er.24h 05/29/19 amLODIPine [Norvasc] 10 mg PO DAILY #30 tab 05/29/19 hydrALAZINE HCL [Apresoline] 75 mg PO TID #90 tab 05/29/19 Allergies Allergy/AdvReac Type Severity Reaction Status Date / Time No Known Allergies Allergy Verified 05/25/19 08:12 Review of Systems ROS Statement: Those systems with pertinent positive or pertinent negative responses have been documented in the HPI. ROS Other: All systems not noted in ROS Statement are negative. Past Medical History Past Medical History: Hypertension Additional Past Medical History / Comment(s): polycystic kidney disease History of Any Multi-Drug Resistant Organisms: None Reported Past Surgical History: Bowel Resection Past Psychological History: No Psychological Hx Reported Smoking Status: Never smoker Past Alcohol Use History: Occasional Past Drug Use History: None Reported - Past Family History Father Family Medical History: Cancer Additional Family Medical History / Comment(s): General Exam - General Exam Comments Initial Comments: This is a well-developed well-nourished awake alert oriented 3 male Limitations: no limitations General appearance: alert, anxious Head exam: Present: atraumatic, normocephalic, normal inspection Eye exam: Present: normal appearance, PERRL, EOMI. Absent: scleral icterus, conjunctival injection, periorbital swelling ENT exam: Present: normal exam, mucous membranes moist Neck exam: Present: normal inspection, full ROM, other (No stridor JVD or bruits). Absent: tenderness, meningismus, lymphadenopathy Respiratory exam: Present: normal lung sounds bilaterally, chest wall tenderness (Some tenderness palpation of left chest wall of the costal sternal margin no step-off or crepitation). Absent: respiratory distress, wheezes, rales, rhonchi, stridor Cardiovascular Exam: Present: normal rhythm, tachycardia, normal heart sounds. Absent: systolic murmur, diastolic murmur, rubs, gallop, clicks GI/Abdominal exam: Present: soft, normal bowel sounds. Absent: distended, tenderness, guarding, rebound, rigid Extremities exam: Present: normal inspection, full ROM, normal capillary refill. Absent: tenderness, pedal edema, joint swelling, calf tenderness Back exam: Present: normal inspection Neurological exam: Present: alert, oriented X3, CN II-XII intact Psychiatric exam: Present: normal affect, normal mood Skin exam: Present: warm, dry, intact, normal color. Absent: rash Course Vital Signs 06/06/19 06/06/19 06/06/19 20:27 20:36 21:00 Temperature 97.9 F Pulse Rate 136 H 135 H 118 H Respiratory 18 13 10 L Rate Blood Pressure 175/94 O2 Sat by Pulse 100 Oximetry 06/06/19 22:00 Temperature Pulse Rate 131 H Respiratory 16 Rate Blood Pressure 127/88 O2 Sat by Pulse 96 Oximetry - Reevaluation(s) Reevaluation #1: 12/11/19 23:20 Patient later state he has some discomfort to the base of his neck as well as some extension up into his head Reevaluation #2: 06/06/19 23:21 I did reevaluate patient several occasions he is feeling improved post heart rate still demonstrates tachycardia EKG Findings - EKG Results: EKG: interpreted by ERMD (Sinus tachycardia rate 133. Ago 146 QRS duration 88 daily since QTC 294/437 nonspecific inferior configuration) Medical Decision Making - Medical Decision Making She is feeling somewhat improved however due to the presentation he will be admitted with consultation by Dr. Casanova from cardiology. The patient will be admitted to Dr. Moore. - Lab Data Result diagrams: 06/06/19 20:55 06/06/19 20:55 Lab Results 06/06/19 06/06/19 06/06/19 Range/Units 20:55 20:55 20:55 WBC 8.3 (3.8-10.6) k/uL RBC 4.64 (4.30-5.90) m/uL Hgb 14.3 (13.0-17.5) gm/dL Hct 41.3 (39.0-53.0) % MCV 89.1 (80.0-100.0) fL MCH 30.8 (25.0-35.0) pg MCHC 34.6 (31.0-37.0) g/dL RDW 12.3 (11.5-15.5) % Plt Count 285 (150-450) k/uL Neutrophils % 68 % Lymphocytes % 21 % Monocytes % 6 % Eosinophils % 3 % Basophils % 1 % Neutrophils # 5.6 (1.3-7.7) k/uL Lymphocytes # 1.8 (1.0-4.8) k/uL Monocytes # 0.5 (0-1.0) k/uL Eosinophils # 0.2 (0-0.7) k/uL Basophils # 0.0 (0-0.2) k/uL PT (9.0-12.0) sec INR (<1.2) APTT (22.0-30.0) sec D-Dimer (<0.60) mg/L FEU Sodium 138 (137-145) mmol/L Potassium 5.0 (3.5-5.1) mmol/L Chloride 106 (98-107) mmol/L Carbon Dioxide 21 L (22-30) mmol/L Anion Gap 11 mmol/L BUN 29 H (9-20) mg/dL Creatinine 1.59 H (0.66-1.25) mg/dL Est GFR (CKD-EPI)AfAm 58 (>60 ml/min/1.73 sqM) Est GFR (CKD-EPI)NonAf 50 (>60 ml/min/1.73 sqM) Glucose 220 H (74-99) mg/dL Calcium 9.1 (8.4-10.2) mg/dL Magnesium 1.8 (1.6-2.3) mg/dL Total Bilirubin 1.2 (0.2-1.3) mg/dL AST 50 (17-59) U/L ALT 58 (21-72) U/L Alkaline Phosphatase 60 (38-126) U/L Ammonia <9 (<30) umol/L Creatine Kinase 127 (55-170) U/L Troponin I (0.000-0.034) ng/mL Total Protein 7.6 (6.3-8.2) g/dL Albumin 4.6 (3.5-5.0) g/dL TSH 2.210 (0.465-4.680) mIU/L Urine Color Urine Appearance (Clear) Urine pH (5.0-8.0) Ur Specific [place] (1.001-1.035) Urine Protein (Negative) Urine Glucose (UA) (Negative) Urine Ketones (Negative) Urine Blood (Negative) Urine Nitrite (Negative) Urine Bilirubin (Negative) Urine Urobilinogen (<2.0) mg/dL Ur Leukocyte Esterase (Negative) Urine RBC (0-5) /hpf Urine WBC (0-5) /hpf Urine Bacteria (None) /hpf Hyaline Casts (0-2) /lpf Urine Mucus (None) /hpf 06/06/19 06/06/19 06/06/19 Range/Units 20:55 20:55 21:18 WBC (3.8-10.6) k/uL RBC (4.30-5.90) m/uL Hgb (13.0-17.5) gm/dL Hct (39.0-53.0) % MCV (80.0-100.0) fL MCH (25.0-35.0) pg MCHC (31.0-37.0) g/dL RDW (11.5-15.5) % Plt Count (150-450) k/uL Neutrophils % % Lymphocytes % % Monocytes % % Eosinophils % % Basophils % % Neutrophils # (1.3-7.7) k/uL Lymphocytes # (1.0-4.8) k/uL Monocytes # (0-1.0) k/uL Eosinophils # (0-0.7) k/uL Basophils # (0-0.2) k/uL PT 9.7 (9.0-12.0) sec INR 0.9 (<1.2) APTT 20.6 L (22.0-30.0) sec D-Dimer 0.45 (<0.60) mg/L FEU Sodium (137-145) mmol/L Potassium (3.5-5.1) mmol/L Chloride (98-107) mmol/L Carbon Dioxide (22-30) mmol/L Anion Gap mmol/L BUN (9-20) mg/dL Creatinine (0.66-1.25) mg/dL Est GFR (CKD-EPI)AfAm (>60 ml/min/1.73 sqM) Est GFR (CKD-EPI)NonAf (>60 ml/min/1.73 sqM) Glucose (74-99) mg/dL Calcium (8.4-10.2) mg/dL Magnesium (1.6-2.3) mg/dL Total Bilirubin (0.2-1.3) mg/dL AST (17-59) U/L ALT (21-72) U/L Alkaline Phosphatase (38-126) U/L Ammonia (<30) umol/L Creatine Kinase (55-170) U/L Troponin I <0.012 (0.000-0.034) ng/mL Total Protein (6.3-8.2) g/dL Albumin (3.5-5.0) g/dL TSH (0.465-4.680) mIU/L Urine Color Light Red Urine Appearance Cloudy (Clear) Urine pH 5.5 (5.0-8.0) Ur Specific [place] 1.006 (1.001-1.035) Urine Protein 1+ H (Negative) Urine Glucose (UA) Trace H (Negative) Urine Ketones Negative (Negative) Urine Blood Moderate H (Negative) Urine Nitrite Negative (Negative) Urine Bilirubin Negative (Negative) Urine Urobilinogen <2.0 (<2.0) mg/dL Ur Leukocyte Esterase Small H (Negative) Urine RBC 39 H (0-5) /hpf Urine WBC 12 H (0-5) /hpf Urine Bacteria Rare H (None) /hpf Hyaline Casts 1 (0-2) /lpf Urine Mucus Rare H (None) /hpf - Radiology Data Radiology results: report reviewed (I did review the imaging and report no acute findings.), image reviewed Disposition Clinical Impression: Atypical chest pain, Hypertension, Tachycardia with heart rate 121-140 beats per minute, Renal insufficiency, Kidney stone on right side, Anxiety Disposition: ADMITTED IP TO THIS HOSP Referrals: Ollie Moore MD [Primary Care Provider] - 1-2 days
[2019-06-06] MEDS ORDERED: ZOLPIDEM 10 MG TAB PO PRN (23:30)
[2019-06-07 00:51] VITALS: RESP 18
[2019-06-07] MEDS: SODIUM CHLORIDE 0.9% 1,000 ML IV SCH ×2 (01:19→13:03)
[2019-06-07] MEDS ORDERED: PANTOPRAZOLE 40 MG/10 ML VIAL IV SCH (09:00)
[2019-06-07] MEDS ORDERED: amLODIPine 10 MG TAB PO SCH (09:00)
[2019-06-07] MEDS ORDERED: OMEGA PO SCH (09:00)
[2019-06-07] MEDS ORDERED: TAMSULOSIN 0.4 MG CAP.ER.24H PO SCH (09:00)
[2019-06-07] MEDS ORDERED: FAMOTIDINE 20 MG TAB PO SCH (09:00)
[2019-06-07] MEDS ORDERED: FISH OIL PO SCH (09:00)
[2019-06-07] MEDS ORDERED: METOPROLOL SUCCINATE (ER) 100 MG TAB.ER.24H PO SCH (09:00)
[2019-06-07] MEDS ORDERED: hydrALAZINE HCL 25 MG TAB PO SCH (09:00)
[2019-06-07] MEDS ORDERED: FATTY ACIDS PO SCH (09:00)
[2019-06-07 11:33] VITALS: BP 166/90; PULSE 118; TEMP 98.9
--- NOTE | 2019-06-07 12:22 | P.CRDCN ---
History of Present Illness Consult date: 06/07/19 History of present illness: This is a 49-year-old gentleman who sees Dr. Casaonva in the office as an outpatient with a past medical history significant for hypertension and the patient was seen recently by Dr. Casanova in the office. At that point he was found to be hypertensive. Few weeks ago he was started on hydralazine at 75 mg by mouth 3 times a day. The dose was increased 200 mg by mouth 3 times a day yesterday. The patient after he took the first 100 mg by mouth daily, he started experiencing flushing in the face associated with symptoms of dizziness and lightheadedness then he was experiencing symptoms of heart racing and fluttering. Because of that he presented to the emergency room. In the ER he was found to be hypertensive and tachycardic. It seems that the patient did develop reaction to a higher dose of hydralazine. The pressure and heart rate continues to be elevated while he is here. The EKG showed sinus tachycardia. The blood work showed normal cardiac enzymes. No prior history of coronary artery disease or congestive heart failure or cardiac arrhythmia. He underwent recently a urinary stent and he stated that the stent is going to be taken out in the next few days. He denies any fever or chills or abdominal pain or abdominal discomfort. Past Medical History Past Medical History: Hypertension Additional Past Medical History / Comment(s): polycystic kidney disease, kidney stone removal with uretal stent placement 05/26/2019 History of Any Multi-Drug Resistant Organisms: None Reported Past Surgical History: Bowel Resection Past Psychological History: No Psychological Hx Reported Smoking Status: Never smoker Past Alcohol Use History: Occasional Past Drug Use History: None Reported - Past Family History Father Family Medical History: Cancer Additional Family Medical History / Comment(s): Medications and Allergies Home Medications Medication Instructions Recorded Confirmed Type Catalyn Multivitamin 1 tab PO DAILY 05/25/19 06/07/19 History Metoprolol Succinate (ER) [Toprol 100 mg PO DAILY 05/25/19 06/07/19 History XL] [place]-3 Fatty Acids/Fish Oil [Fish 1 tab PO DAILY 05/25/19 06/07/19 History Oil 1,000 mg Softgel] Renafood Supplement 1 tab PO DAILY 05/25/19 06/07/19 History Acetaminophen Tab [Tylenol] 650 mg PO Q6HR PRN tab 05/29/19 06/07/19 Rx Famotidine [Pepcid] 20 mg PO BID #60 tab 05/29/19 06/07/19 Rx Tamsulosin [Flomax] 0.4 mg PO DAILY #30 cap.er.24h 05/29/19 06/07/19 Rx amLODIPine [Norvasc] 10 mg PO DAILY #30 tab 05/29/19 06/07/19 Rx hydrALAZINE HCL [Apresoline] 75 mg PO TID #90 tab 05/29/19 06/07/19 Rx Ascorbic Acid [Vitamin C] 500 mg PO DAILY 06/06/19 06/07/19 History Aspirin [Adult Low Dose Aspirin EC] 81 mg PO DAILY 06/07/19 06/07/19 History Allergies Allergy/AdvReac Type Severity Reaction Status Date / Time No Known Allergies Allergy Verified 06/07/19 00:49 Physical Exam Vitals: Vital Signs Temp Pulse Pulse Resp BP BP BP 06/07/19 11:32 98.9 F 118 H 18 166/90 06/07/19 08:00 98.1 F 102 H 18 159/89 06/07/19 03:55 98.2 F 106 H 18 134/82 06/07/19 01:00 132/71 06/07/19 00:00 98.6 F 108 H 18 161/102 06/06/19 23:00 111 H 22 141/89 06/06/19 22:00 131 H 16 127/88 06/06/19 21:00 118 H 10 L 06/06/19 20:36 135 H 13 06/06/19 20:27 97.9 F 136 H 18 175/94 Pulse Ox 06/07/19 11:32 99 06/07/19 08:00 98 06/07/19 03:55 98 06/07/19 01:00 06/07/19 00:00 98 06/06/19 23:00 97 06/06/19 22:00 96 06/06/19 21:00 06/06/19 20:36 06/06/19 20:27 100 Intake and Output 06/06/19 06/07/19 06/07/19 22:59 06:59 14:59 Other: Voiding Method Toilet Toilet # Voids 1 1 Weight 109.769 kg - Constitutional General appearance: no acute distress - Respiratory Respiratory: bilateral: CTA - Cardiovascular Rhythm: regular Heart sounds: normal: S1, S2 Results 06/06/19 20:55 06/06/19 20:55 Cardiac Enzymes 06/06/19 06/06/19 06/07/19 Range/Units 20:55 20:55 03:05 AST 50 (17-59) U/L Troponin I <0.012 0.018 (0.000-0.034) ng/mL 06/07/19 Range/Units 08:31 AST (17-59) U/L Troponin I <0.012 (0.000-0.034) ng/mL Coagulation 06/06/19 Range/Units 20:55 PT 9.7 (9.0-12.0) sec APTT 20.6 L (22.0-30.0) sec CBC 06/06/19 Range/Units 20:55 WBC 8.3 (3.8-10.6) k/uL RBC 4.64 (4.30-5.90) m/uL Hgb 14.3 (13.0-17.5) gm/dL Hct 41.3 (39.0-53.0) % Plt Count 285 (150-450) k/uL Comprehensive Metabolic Panel 06/06/19 Range/Units 20:55 Sodium 138 (137-145) mmol/L Potassium 5.0 (3.5-5.1) mmol/L Chloride 106 (98-107) mmol/L Carbon Dioxide 21 L (22-30) mmol/L BUN 29 H (9-20) mg/dL Creatinine 1.59 H (0.66-1.25) mg/dL Glucose 220 H (74-99) mg/dL Calcium 9.1 (8.4-10.2) mg/dL AST 50 (17-59) U/L ALT 58 (21-72) U/L Alkaline Phosphatase 60 (38-126) U/L Total Protein 7.6 (6.3-8.2) g/dL Albumin 4.6 (3.5-5.0) g/dL Current Medications Generic Name Dose Route Start Last Admin Trade Name Freq PRN Reason Stop Dose Admin Acetaminophen 650 mg 06/06/19 23:26 06/07/19 01:18 Tylenol Tab PO 650 mg Q6HR PRN Administration Mild Pain or Fever > 100.5 Amlodipine Besylate 10 mg 06/07/19 09:00 Norvasc PO DAILY NURIS Famotidine 20 mg 06/07/19 09:00 Pepcid PO BID NURIS Hydralazine HCl 75 mg 06/07/19 09:00 Apresoline PO TID NURIS Sodium Chloride 1,000 mls @ 80 mls/hr 06/06/19 23:30 06/07/19 01:19 Saline 0.9% IV 80 mls/hr .[id number] NURIS Administration Metoprolol Succinate 100 mg 06/07/19 09:00 Toprol Xl PO DAILY NURIS Naloxone HCl 0.2 mg 06/06/19 23:26 Narcan IV Q2M PRN Opioid Reversal Pantoprazole Sodium 40 mg 06/07/19 09:00 Protonix IV DAILY NURIS Tamsulosin HCl 0.4 mg 06/07/19 09:00 Flomax PO DAILY NURIS Zolpidem Tartrate 10 mg 06/06/19 23:30 06/07/19 01:18 Ambien PO 10 mg HS PRN Administration sleep Intake and Output 06/06/19 06/07/19 06/07/19 22:59 06:59 14:59 Other: Voiding Method Toilet Toilet # Voids 1 1 Weight 109.769 kg 06/06/19 20:55 06/06/19 20:55 Assessment and Plan Assessment: Assessment #1 uncontrolled blood pressure #2 sinus tachycardia #3 possible reaction to hydralazine Plan #1 DC Norvasc #2 DC hydralazine #3 start the patient on Cardizem CD at 1-80 mg by mouth daily. #4 advised monitor the patient for additional 24 hours #5 follow-up with the patient
[2019-06-07] MEDS ORDERED: DILTIAZEM CD 180 MG CAP.ER.24H PO SCH (12:36)
--- NOTE | 2019-06-07 12:36 | P.HPIM ---
History of Present Illness 49-year-old male on presented the emergency room after episode of tachycardia with nausea sweaty shaky. Patient had his medication adjusted recently had chlorothiazide up to the 100 mg 3 times a day from intractable hypertension. Patient has been evaluated by cardiology medication will be adjusted cardiology recommending a 24-hour hold Review of Systems Constitutional: Reports sweats Cardiovascular: Reports rapid heart beat Gastrointestinal: Reports nausea Past Medical History Past Medical History: Hypertension Additional Past Medical History / Comment(s): polycystic kidney disease, kidney stone removal with uretal stent placement 05/26/2019 History of Any Multi-Drug Resistant Organisms: None Reported Past Surgical History: Bowel Resection Past Psychological History: No Psychological Hx Reported Smoking Status: Never smoker Past Alcohol Use History: Occasional Past Drug Use History: None Reported - Past Family History Father Family Medical History: Cancer Additional Family Medical History / Comment(s): Medications and Allergies Home Medications Medication Instructions Recorded Confirmed Type Catalyn Multivitamin 1 tab PO DAILY 05/25/19 06/07/19 History Metoprolol Succinate (ER) [Toprol 100 mg PO DAILY 05/25/19 06/07/19 History XL] [place]-3 Fatty Acids/Fish Oil [Fish 1 tab PO DAILY 05/25/19 06/07/19 History Oil 1,000 mg Softgel] Renafood Supplement 1 tab PO DAILY 05/25/19 06/07/19 History Acetaminophen Tab [Tylenol] 650 mg PO Q6HR PRN tab 05/29/19 06/07/19 Rx Famotidine [Pepcid] 20 mg PO BID #60 tab 05/29/19 06/07/19 Rx Tamsulosin [Flomax] 0.4 mg PO DAILY #30 cap.er.24h 05/29/19 06/07/19 Rx amLODIPine [Norvasc] 10 mg PO DAILY #30 tab 05/29/19 06/07/19 Rx hydrALAZINE HCL [Apresoline] 75 mg PO TID #90 tab 05/29/19 06/07/19 Rx Ascorbic Acid [Vitamin C] 500 mg PO DAILY 06/06/19 06/07/19 History Aspirin [Adult Low Dose Aspirin EC] 81 mg PO DAILY 06/07/19 06/07/19 History Allergies Allergy/AdvReac Type Severity Reaction Status Date / Time No Known Allergies Allergy Verified 06/07/19 00:49 Physical Exam Vitals: Vital Signs Temp Pulse Pulse Resp BP BP BP 06/07/19 11:32 98.9 F 118 H 18 166/90 06/07/19 08:00 98.1 F 102 H 18 159/89 06/07/19 03:55 98.2 F 106 H 18 134/82 06/07/19 01:00 132/71 06/07/19 00:00 98.6 F 108 H 18 161/102 06/06/19 23:00 111 H 22 141/89 06/06/19 22:00 131 H 16 127/88 06/06/19 21:00 118 H 10 L 06/06/19 20:36 135 H 13 06/06/19 20:27 97.9 F 136 H 18 175/94 Pulse Ox 06/07/19 11:32 99 06/07/19 08:00 98 06/07/19 03:55 98 06/07/19 01:00 06/07/19 00:00 98 06/06/19 23:00 97 06/06/19 22:00 96 06/06/19 21:00 06/06/19 20:36 06/06/19 20:27 100 Intake and Output 06/06/19 06/07/19 06/07/19 22:59 06:59 14:59 Other: Voiding Method Toilet Toilet # Voids 1 1 Weight 109.769 kg - Constitutional General appearance: mild distress - EENT Eyes: PERRLA - Neck Neck: normal ROM - Respiratory Respiratory: bilateral: CTA - Cardiovascular Rhythm: regular Abnormal Heart Sounds: systolic murmur - Gastrointestinal General gastrointestinal: soft - Integumentary Integumentary: normal - Neurologic Neurologic: CNII-XII intact - Musculoskeletal Musculoskeletal: gait normal - Psychiatric Psychiatric: A&O x's 3, appropriate affect, intact judgment & insight Results CBC & Chem 7: 06/06/19 20:55 06/06/19 20:55 Labs: Abnormal Lab Results - Last 24 Hours (Table) 06/06/19 06/06/19 06/06/19 Range/Units 20:55 20:55 21:18 APTT 20.6 L (22.0-30.0) sec Carbon Dioxide 21 L (22-30) mmol/L BUN 29 H (9-20) mg/dL Creatinine 1.59 H (0.66-1.25) mg/dL Glucose 220 H (74-99) mg/dL Urine Protein 1+ H (Negative) Urine Glucose (UA) Trace H (Negative) Urine Blood Moderate H (Negative) Ur Leukocyte Esterase Small H (Negative) Urine RBC 39 H (0-5) /hpf Urine WBC 12 H (0-5) /hpf Urine Bacteria Rare H (None) /hpf Urine Mucus Rare H (None) /hpf Microbiology - Last 24 Hours (Table) 06/06/19 21:18 Urine Culture - Preliminary Urine,Voided Chest x-ray: report reviewed CT Scan - head: report reviewed (EKG heart rate 133) Thrombosis Risk Factor Assmnt - Choose All That Apply Any of the Below Risk Factors Present?: Yes Each Factor Represents 1 point: Age 41-60 years, Obesity (BMI >25) Other Risk Factors: No Other congenital or acquired thrombophilia - If yes, enter type in comment: No Thrombosis Risk Factor Assessment Total Risk Factor Score: 2 Thrombosis Risk Factor Assessment Level: Low Risk Assessment and Plan Plan: Assessment Atypical chest pain Intractable hypertension Tachycardia heart rate 121-140 Renal insufficiency creatinine 1.59 stage II Kidney stone with stent Polycystic kidney disease Anxiety disorder Plan Cardiology adjusting medication Hold for 24 hours [facility]
--- NOTE | 2019-06-07 13:46 | P.DS ---
Providers Date of admission: 06/06/19 23:32 Expected date of discharge: 06/07/19 Attending physician: Ollie Moore Consults: 06/06/19 23:28 Consult Physician Routine Consulting Provider: Ivan Casanova Consult Reason/Comments: Cardiac, hypertension Do you want consulting provider notified?: Yes, Notify in am Primary care physician: Ollie Moore Hospital Course: -year-old male was admitted to the emergency room after adverse drug reaction to Apressoline. Patient states became tachycardic noshes shaky with sweats. Was evaluated and placed in observation unit. Patient was seen by cardiology medication adjusted. Patient asking to be discharged. Assessment adverse drug reaction Apresoline atypical chest pain hypertension tachycardia heart rate 120-140 polycystic kidney disease renal insufficiency stage II kidney stone was stent anxiety disorder Plan discharge home with follow up with family physician and cardiology Plan - Discharge Summary Discharge Rx Participant: No New Discharge Prescriptions: New Diltiazem Cd [Cardizem CD] 180 mg PO DAILY #30 cap.er.24h Acetaminophen Tab [Tylenol] 650 mg PO Q6HR PRN tab PRN Reason: Mild Pain Or Fever > 100.5 Sertraline [Zoloft] 50 mg PO DAILY #30 tab Continue Metoprolol Succinate (ER) [Toprol XL] 100 mg PO DAILY Renafood Supplement 1 tab PO DAILY Catalyn Multivitamin 1 tab PO DAILY [place]-3 Fatty Acids/Fish Oil [Fish Oil 1,000 mg Softgel] 1 tab PO DAILY Tamsulosin [Flomax] 0.4 mg PO DAILY #30 cap.er.24h Famotidine [Pepcid] 20 mg PO BID #60 tab Ascorbic Acid [Vitamin C] 500 mg PO DAILY Aspirin [Adult Low Dose Aspirin EC] 81 mg PO DAILY Discontinued hydrALAZINE HCL [Apresoline] 75 mg PO TID #90 tab amLODIPine [Norvasc] 10 mg PO DAILY #30 tab Acetaminophen Tab [Tylenol] 650 mg PO Q6HR PRN tab PRN Reason: Mild Pain Or Fever > 100.5 Discharge Medication List Catalyn Multivitamin 1 tab PO DAILY 05/25/19 [History] Metoprolol Succinate (ER) [Toprol XL] 100 mg PO DAILY 05/25/19 [History] [place]-3 Fatty Acids/Fish Oil [Fish Oil 1,000 mg Softgel] 1 tab PO DAILY 05/25/19 [History] Renafood Supplement 1 tab PO DAILY 05/25/19 [History] Famotidine [Pepcid] 20 mg PO BID #60 tab 05/29/19 [Rx] Tamsulosin [Flomax] 0.4 mg PO DAILY #30 cap.er.24h 05/29/19 [Rx] Ascorbic Acid [Vitamin C] 500 mg PO DAILY 06/06/19 [History] Acetaminophen Tab [Tylenol] 650 mg PO Q6HR PRN tab 06/07/19 [Rx] Aspirin [Adult Low Dose Aspirin EC] 81 mg PO DAILY 06/07/19 [History] Diltiazem Cd [Cardizem CD] 180 mg PO DAILY #30 cap.er.24h 06/07/19 [Rx] Sertraline [Zoloft] 50 mg PO DAILY #30 tab 06/07/19 [Rx] Follow up Appointment(s)/Referral(s): Ollie Moore MD [Primary Care Provider] - 1-2 days
[2019-06-07 14:10] LABS: Hemoglobin A1C 5.4 % (4.0-6.0)
[2019-06-08] MEDS ORDERED: DILTIAZEM CD 180 MG CAP.ER.24H PO SCH (09:00)
== END 2019-06-07 16:30 ==
LOC: EC 20:26 → 1SOBS 23:32
PROVIDERS: ADMIT Family Medicine; ATTEND Family Medicine
DX: T46.5X5A Adverse effect of other antihypertensive drugs, initial encounter (principal); R07.89 Other chest pain; R00.0 Tachycardia, unspecified; Q61.3 Polycystic kidney, unspecified; I12.9 Hypertensive chronic kidney disease with stage 1 through stage 4 chronic kidney disease, or unspecified chronic kidney disease; N18.3 Chronic kidney disease, stage 3 (moderate); Z87.442 Personal history of urinary calculi; F41.9 Anxiety disorder, unspecified; Z96.0 Presence of urogenital implants; Z79.899 Other long term (current) drug therapy
CPT/HCPCS: 96361; 96374; 99285; 36415; 93005; 85379; 80053; 82140; 82550; 83735; 84443; 84484 ×2; 85025; 85610; 85730; 81001; 87040; 87086; 83036; 71046; 70450; G0378 ×2; J2270

== ENCOUNTER → 2019-07-05 | Outpatient (CLI) | payer BC ==
--- NOTE | 2019-07-05 09:04 | US ---
EXAMINATION TYPE: US kidneys/renal and bladder DATE OF EXAM: 07/05/2019 COMPARISON: 05/25/2019 CT and renal ultrasound dated 01/17/2018 CLINICAL HISTORY: R20.0 calculus of kidney. Hx of stones and cysts. EXAM MEASUREMENTS: Right Kidney: 11.3 x 7.0 x 5.4 cm Left Kidney: 11.9 x 5.3 x 5.3 cm Right Kidney: Multiple cysts largest upper pole 4.3 x 3.6 x 3.9cm Left Kidney: Multiple cysts largest lower pole 4.4 x 4.1 x 3.6 cm. Echogenic area seen largest mid po le 1 cm. Bladder: Anechoic Bilateral Jets seen: yes There is no evidence for hydronephrosis at this point in time. The urinary bladder is anechoic. Giovanny ateral ureteral jets are seen. IMPRESSION: Numerous bilateral renal cysts, the largest on the right measuring 4.3 cm and the largest on the left measuring 4.4 cm. Solitary nonobstructing 1.0 cm left renal calculus is also seen.
== END | disposition home or self-care (01) ==
LOC: RADUSWWP 07:39
PROVIDERS: ATTEND Urology
DX: N20.0 Calculus of kidney (principal); N28.1 Cyst of kidney, acquired
CPT/HCPCS: 76770

== ENCOUNTER → 2019-07-30 | Outpatient (CLI) | payer BC | END | disposition home or self-care (01) | LOC: RADMRIMAIN 20:09 | PROVIDERS: ATTEND Internal Medicine | DX: Z53.9 Procedure and treatment not carried out, unspecified reason (principal) ==

== ENCOUNTER → 2020-01-10 | Outpatient (CLI) | payer BC ==
[2020-01-10 09:06] LABS: HCT 45.7 % (39.0-53.0); HGB 15.9 gm/dL (13.0-17.5); MCH 31.4 pg (25.0-35.0); MCHC 34.9 g/dL (31.0-37.0); MCV 90.1 fL (80.0-100.0); Mean Platelet Volume 7.3; Platelet Count 193 k/uL (150-450); RBC 5.07 m/uL (4.30-5.90); RDW 12.5 % (11.5-15.5); WBC 6.5 k/uL (3.8-10.6)
[2020-01-10 09:32] LABS: Appearance,Urine Clear (Clear); Bilirubin,Urine Negative (Negative); Blood,Urine Trace (Negative); Color,Urine Yellow; Glucose,Urine (UA) Negative (Negative); Ketones,Urine Negative (Negative); Leukocyte Esterase,Urine Negative (Negative); Mucus,Urine Rare /hpf; Nitrite,Urine Negative (Negative); Protein,Urine Trace (Negative); RBC,Urine 4 /hpf (0-5); Specific Gravity,Urine 1.022 (1.001-1.035); Urobilinogen,Urine <2.0 mg/dL (<2.0); WBC,Urine 1 /hpf (0-5)
[2020-01-10 09:42] LABS: Creatinine,Urine Random 196.9 mg/dL; Protein/Creatinine Ratio,Urine 0.081
[2020-01-10 17:31] LABS: % Iron Saturation 30.84 (15.00-50.00); Albumin 4.6 g/dL (3.80-4.90); Anion Gap 9.5 mmol/L (4.00-12.00); BUN/Creat Ratio 18.67 Ratio (12.00-20.00); Calcium 9.5 mg/dL (8.7-10.3); Carbon Dioxide 25.5 mmol/L (21.6-31.8); Globulin 2.3 g/dL (1.6-3.3); Magnesium 1.7 mg/dL (1.5-2.4); Non-African American GFR(CKD) 53.5 (60.0-200.0); Phosphorus 3.2 mg/dL (2.4-5.1); Potassium 4.7 mmol/L (3.5-5.5); Total Bilirubin 0.7 mg/dL (0.3-1.2); Total Protein 6.9 g/dL (6.2-8.2); Uric Acid 5.7 mg/dL (3.7-8.7)
[2020-01-10 17:38] LABS: Ferritin 246.8 ng/mL (22.0-322.0)
== END | disposition home or self-care (01) ==
LOC: LABWHC1 07:55
PROVIDERS: ATTEND Nurse Practitioner Family
DX: N18.3 Chronic kidney disease, stage 3 (moderate) (principal); D63.1 Anemia in chronic kidney disease; N39.0 Urinary tract infection, site not specified; R80.9 Proteinuria, unspecified; N25.81 Secondary hyperparathyroidism of renal origin; E55.9 Vitamin D deficiency, unspecified; M10.9 Gout, unspecified
CPT/HCPCS: 36415; 80053; 81001; 82306; 82570; 82728; 83540; 83550; 83735; 83970; 84100; 84156; 84550; 85027

== ENCOUNTER 2020-02-28 07:52 | Day surgery (SDC) | payer BC ==
[2020-02-26 09:21] VITALS: BMI 30.5
[~2020-02-28 07:52] MED LIST: LACTATED RINGERS 1,000 ML IV SCH; LIDOCAINE 1% (10MG/ML) FOR IV START INTRADERMA PRN
--- NOTE | 2020-02-28 08:05 | P.GSHP ---
History of Present Illness H&P Date: 02/28/20 CHIEF COMPLAINT: Colon screen HISTORY OF PRESENT ILLNESS: The patient is a 50-year-old male who presents for colon screen. Lower endoscopy was offered for further evaluation and management. PAST MEDICAL HISTORY: Please see list. PAST SURGICAL HISTORY: Please see list. MEDICATIONS: Please see list. ALLERGIES: Please see list. SOCIAL HISTORY: No illicit drug use FAMILY HISTORY: No reports of Crohn disease or ulcerative colitis. REVIEW OF ORGAN SYSTEMS: CONSTITUTIONAL: No reports of fevers or chills. PHYSICAL EXAM: VITAL SIGNS: Stable GENERAL: Well-developed pleasant in no acute distress. HEENT: No scleral icterus. Extraocular movements grossly intact. Moist buccal mucosa. NECK: Supple without lymphadenopathy. CHEST: Unlabored respirations. Equal bilateral excursions. CARDIOVASCULAR: Regular rate and rhythm. Distal 2+ pulses. ABDOMEN: Soft, nontender, nondistended. MUSCULOSKELETAL: No clubbing, cyanosis, or edema. ASSESSMENT: 1. Colon screen. PLAN: 1. Recommend proceeding with a lower endoscopy Past Medical History Past Medical History: Cancer, GERD/Reflux, Hypertension, Sleep Apnea/CPAP/BIPAP Additional Past Medical History / Comment(s): polycystic kidney disease, kidney stones, skin cancer, Hx of diverticulitis., rectal fissures., blood in stool ., Does not use his C-pap. History of Any Multi-Drug Resistant Organisms: None Reported Past Surgical History: Bowel Resection Additional Past Surgical History / Comment(s): Bowel Resection for Diverticulitis (2013) Past Anesthesia/Blood Transfusion Reactions: No Reported Reaction Past Psychological History: Anxiety Smoking Status: Never smoker Past Alcohol Use History: Occasional Past Drug Use History: None Reported - Past Family History Father Family Medical History: Cancer Additional Family Medical History / Comment(s): liver, lung, bone & prostate cancer Medications and Allergies Home Medications Medication Instructions Recorded Confirmed Type Catalyn Multivitamin 1 tab PO DAILY 05/25/19 02/26/20 History Metoprolol Succinate (ER) [Toprol 100 mg PO DAILY 05/25/19 02/26/20 History XL] [place]-3 Fatty Acids/Fish Oil [Fish 1 tab PO DAILY 05/25/19 02/26/20 History Oil 1,000 mg Softgel] Renafood Supplement 1 tab PO DAILY 05/25/19 02/26/20 History Acetaminophen Tab [Tylenol] 650 mg PO Q6HR PRN tab 06/07/19 02/26/20 Rx Diltiazem Cd [Cardizem CD] 180 mg PO DAILY #30 cap.er.24h 06/07/19 02/26/20 Rx Zolpidem [Ambien] 5 mg PO HS PRN #30 tab 06/07/19 02/26/20 Rx Doxazosin [Cardura] 4 mg PO DAILY 02/26/20 02/26/20 History Famotidine [Pepcid] 20 mg PO DAILY 02/26/20 02/26/20 History L.acidoph,Paracasei, B.lactis 1 each PO DAILY 02/26/20 02/26/20 History [Probiotic] Vitamin D (Unknown Dose) 1 tab PO DAILY 02/26/20 History lisinopriL 20 mg PO DAILY 02/26/20 02/26/20 History Allergies Allergy/AdvReac Type Severity Reaction Status Date / Time No Known Allergies Allergy Verified 02/26/20 08:56
[2020-02-28 08:39] VITALS: RESP 16; TEMP 98.1
[2020-02-28] MEDS ORDERED: LIDOCAINE 1% INJ 10MG/ML (20 ML MDV) ONE (08:40)
[2020-02-28] MEDS ORDERED: PROPOFOL 10 MG/ML 20 ML VIAL IV ONE (08:40)
--- NOTE | 2020-02-28 09:03 | P.PCN ---
Date of Procedure: 02/28/20 Description of Procedure: PREOPERATIVE DIAGNOSIS: Colonoscopy screening. POSTOPERATIVE DIAGNOSIS: Colonoscopy screening. Diverticulosis, scattered. OPERATION: Colonoscopy to the cecum, ileocecal valve and appendiceal orifice. SURGEON: Latanya Garcia MD. ANESTHESIA: MAC. INDICATIONS: The patient is a 50-year-old male who presents for colonoscopy screening. Benefits and risks were described and informed consent was obtained. DESCRIPTION OF PROCEDURE: The patient had undergone Suprep. He had been brought into the operating room and laid in the left lateral decubitus position. After adequate intravenous sedation, the rectum was examined with 2% lidocaine jelly. No external hemorrhoids were encountered. The rectal tone was within normal limits. No lesions were palpated in the rectal vault. An Olympus colonoscope was advanced until the cecum, ileocecal valve and appendiceal orifice were clearly viewed. The prep was excellent. Moderate [place] multiple diverticula were identified involving the descending colon from 30 cm to 20 cm from the anal verge. A colonic anastomosis was identified at 15 cm from the anal verge and unremarkable. No colonic polyps were found. No evidence of focal colitis was found. Retroflexion of the scope demonstrated grade 1 internal hemorrhoids without active bleeding or inflammation. The colon was desufflated. The patient had tolerated the procedure well. Withdrawal time was over 6 minutes. FINDINGS: [place]ick preparation quality scale 1 (1-5) Internal hemorrhoids, grade 1 No external prolapsed hemorrhoids. No arteriovenous malformations. No adenomatous polyps. No focal colitis. Moderate [place] multiple diverticula were identified involving the descending colon from 30 cm to 20 cm from the anal verge. A colonic anastomosis was identified at 15 cm from the anal verge and unremarkable. RECOMMENDATIONS: Lower endoscopy in 5 years, 2024 Plan - Discharge Summary New Discharge Prescriptions: Continue Metoprolol Succinate (ER) [Toprol XL] 100 mg PO DAILY Renafood Supplement 1 tab PO DAILY Catalyn Multivitamin 1 tab PO DAILY [place]-3 Fatty Acids/Fish Oil [Fish Oil 1,000 mg Softgel] 1 tab PO DAILY Diltiazem Cd [Cardizem CD] 180 mg PO DAILY #30 cap.er.24h Acetaminophen Tab [Tylenol] 650 mg PO Q6HR PRN tab PRN Reason: Mild Pain Or Fever > 100.5 Zolpidem [Ambien] 5 mg PO HS PRN #30 tab PRN Reason: Insomnia Vitamin D (Unknown Dose) 1 tab PO DAILY L.acidoph,Paracasei, B.lactis [Probiotic] 1 each PO DAILY lisinopriL 20 mg PO DAILY Doxazosin [Cardura] 4 mg PO DAILY Famotidine [Pepcid] 20 mg PO DAILY Discharge Medication List Catalyn Multivitamin 1 tab PO DAILY 05/25/19 [History] Metoprolol Succinate (ER) [Toprol XL] 100 mg PO DAILY 05/25/19 [History] [place]-3 Fatty Acids/Fish Oil [Fish Oil 1,000 mg Softgel] 1 tab PO DAILY 05/25/19 [History] Renafood Supplement 1 tab PO DAILY 05/25/19 [History] Acetaminophen Tab [Tylenol] 650 mg PO Q6HR PRN tab 06/07/19 [Rx] Diltiazem Cd [Cardizem CD] 180 mg PO DAILY #30 cap.er.24h 06/07/19 [Rx] Zolpidem [Ambien] 5 mg PO HS PRN #30 tab 06/07/19 [Rx] Doxazosin [Cardura] 4 mg PO DAILY 02/26/20 [History] Famotidine [Pepcid] 20 mg PO DAILY 02/26/20 [History] L.acidoph,Paracasei, B.lactis [Probiotic] 1 each PO DAILY 02/26/20 [History] Vitamin D (Unknown Dose) 1 tab PO DAILY 02/26/20 [History] lisinopriL 20 mg PO DAILY 02/26/20 [History] Follow up Appointment(s)/Referral(s): Latanya Garcia MD [STAFF PHYSICIAN] - As Needed Patient Instructions/Handouts: *Surgery [facility] - (Anesthesia) Endoscopy Discharge Instructions, Colonoscopy (DC), Diverticulosis Diet (GEN), Diverticulosis (DC) Activity/Diet/Wound Care/Special Instructions: Repeat colonoscopy in 5 years, 2024 Discharge Disposition: HOME SELF-CARE
[2020-02-28 09:27] VITALS: BP 136/74; PULSE 74
== END 2020-02-28 09:32 | disposition home or self-care (01) ==
LOC: ORWHC2ENDO 07:52
PROVIDERS: ATTEND Surgery Plastic and Reconstructive Surgery
DX: K57.30 Diverticulosis of large intestine without perforation or abscess without bleeding (principal); K64.0 First degree hemorrhoids; Q61.3 Polycystic kidney, unspecified; I10 Essential (primary) hypertension; G47.33 Obstructive sleep apnea (adult) (pediatric); K21.9 Gastro-esophageal reflux disease without esophagitis; F41.9 Anxiety disorder, unspecified; Z79.899 Other long term (current) drug therapy; Z90.49 Acquired absence of other specified parts of digestive tract; Z99.89 Dependence on other enabling machines and devices; Z87.442 Personal history of urinary calculi; Z85.828 Personal history of other malignant neoplasm of skin
CPT/HCPCS: 45378; J2001; J2704

== ENCOUNTER → 2020-05-08 | Outpatient (CLI) | payer BC ==
--- NOTE | 2020-05-09 11:35 | P.STRESS ---
- Stress Test Note Stress Test Results/Findings: Exam Performed: stress test Exam Date: 05/08/20 Reason for Exam: CHEST PAIN Height: 6 ft Weight: 230 kg Protocol: CARY Stage: 4 Duration of Exercise: 10:00 Resting Heart Rate: 79 Resting Blood Pressure: 151/108 Maximum Achieved Heart Rate: 152 Maximum Achieved Blood Pressure: 151/108 85% PMHR: 144 100% PMHR: 169 METS: 11.7 Technologist Comment: Stress Test Results/Findings: Baseline heart rate 79 beats a minute, Baseline blood pressure 151 400 mmHg Baseline twelve-lead ECG shows normal sinus rhythm and normal cardiac intervals normal ST segments and occasional PVCs Patient exercised on a [place] protocol for 10 minutes achieving a peak heart rate of 152 beats a minute Peak blood pressure 193/78 mmHg PVCs noted during exercise This procedure was for ischemia Impression Good excess capacity Hypertension PVCs noted with exercise No ECG was for ischemia
== END | disposition home or self-care (01) ==
LOC: RADECHMAIN 08:28
PROVIDERS: ATTEND Family Medicine
DX: I20.9 Angina pectoris, unspecified (principal)
CPT/HCPCS: 93017; 93306

== ENCOUNTER → 2020-08-28 | Outpatient (CLI) | payer BC ==
--- NOTE | 2020-08-28 17:57 | CONS ---
CONSULTATION DATE OF SERVICE: 08/28/2020 50-year-old gentleman who has been re-evaluated in Sleep Center for obstructive sleep apnea-hypopnea syndrome. Last time I saw the patient in 2015. At that time, he did use his CPAP equipment, but about 3 years ago, he stopped it because he did not feel comfortable with the nasal CPAP mask. Presently, his sleep schedule from 11:30 p.m. to 6:40 am on working days and from midnight until 7:30 a.m. on weekends. No problem with falling asleep. Usually he sleeps on the side or even in the chair. He continues to have loud snoring and episodes of stopped breathing during sleep. He wakes up from sleep once with nocturia. No history of hypnagogic hallucinations, sleep paralysis or cataplexy. [place] Sleepiness Scale is 6. PAST MEDICAL HISTORY: Positive for hypertension, anxiety, acid reflux, diverticulitis. SURGICAL HISTORY: Surgery for diverticulitis in 2013 and for kidney stone in 2019. MEDICATIONS: Lisinopril 20 mg once a day, diltiazem 180 mg once a day. Metoprolol. Zolpidem 5 mg at bedtime, vitamin supplements. SOCIAL HISTORY: Negative for smoking or using alcohol. FAMILY HISTORY: Positive for cancer, diabetes, heart problems. REVIEW OF SYSTEMS: Snoring, awakenings from sleep. PHYSICAL EXAM: gentleman without distress. BP 167/87, HR 83, RR 18, height 6 feet 0 inches, weight 233.4, temperature 98.5, oxygen saturation on room air 100%, body mass index 31.6. HEENT: PERRLA, EOMI, evaluation of oropharynx showed tongue protrudes midline. NECK: Supple, no JVD. Thyroid is not palpable. LUNGS: Clear to percussion and to auscultation. Good air exchange. No wheezing or rhonchi. HEART: S1, S2 regular. No murmurs, gallops, or rubs. ABDOMEN: Soft and nontender. Bowel sounds are present. No organomegaly appreciated. EXTREMITIES: No clubbing or cyanosis. FEEDLOT MANAGER: Awake, alert, and oriented X3. Cranial nerves 2 to 7 intact. There is no fasciculation or atrophy. noted. No focal deficits observed. IMPRESSION: 1. Snoring, awakenings from sleep with nocturia. 2. History of severe obstructive sleep apnea-hypopnea syndrome with apnea-hypopnea index 68 and oxygen desaturation to 79. The patient stopped using CPAP equipment 3 years ago, wide neck, obstructive sleep apnea-hypopnea syndrome. 3. Mild obesity, BMI 31.6. 4. Hypertension. 5. Anxiety. 6. Acid reflux. 7. History of diverticulitis. 8. Status post kidney stones removed in April 2020. PLAN: 1. Home sleep apnea test for reevaluation of patient breathing at the present time. 2. Prescription for all necessary CPAP supplies. 3. The patient should start using CPAP equipment. I checked his CPAP unit and changed regimen in the machine to the automatic range with a pressure of 5-10 cm of water. 4. Losing weight. 5. No driving if feeling sleepiness. Thank you very much for allowing me to participate in the management of your patient. Rolando Colin MD, PhD, FAASM Diplomat of [place] [employer] [place] [employer] Customer Account Administrator of [facility] [place] MMODL / IJN: [id number] /
== END | disposition home or self-care (01) ==
LOC: SLEEP 15:39
PROVIDERS: ATTEND Internal Medicine
DX: G47.33 Obstructive sleep apnea (adult) (pediatric) (principal); R35.1 Nocturia; E66.9 Obesity, unspecified; I10 Essential (primary) hypertension; F41.9 Anxiety disorder, unspecified; K21.9 Gastro-esophageal reflux disease without esophagitis; Z87.442 Personal history of urinary calculi; Z79.899 Other long term (current) drug therapy; Z68.31 Body mass index [BMI] 31.0-31.9, adult; Z99.89 Dependence on other enabling machines and devices; Z87.19 Personal history of other diseases of the digestive system
CPT/HCPCS: 99211

== ENCOUNTER → 2020-11-12 | Outpatient (CLI) | payer BC ==
--- NOTE | 2020-11-12 15:43 | US ---
EXAMINATION TYPE: US kidneys/renal and bladder DATE OF EXAM: 11/12/2020 COMPARISON: Ultrasound 07/05/2019, CT 05/25/2019 CLINICAL HISTORY: N20.0 Calculus of Kidney. Patient stated had left flank pain and then, left pelvic pain 2 weeks ago, thinking he passed stone then with hematuria. PAin has subsided. EXAM MEASUREMENTS: Right Kidney: 12.7 x 5.7 x 7.0 cm Left Kidney: 13.2 x 10.5 x 8.5 cm Post Void Residual Volume: 9.8 mL Right Kidney: multicystic kidney with largest cyst seen upper cortex = 4.3 x 4.5 x 4.1cm; multiple h yperechoic foci (possible renal calculi) noted mid medial. Left Kidney: multicystic kidney with largest cluster at inferior pole = 8.0 x 7.4 x 4.6cm adjacent cy sts; multiple hyperechoic foci (possible renal calculi) noted mid pole. Bladder: no masses; mildly thickened bladder wall just over 0.3cm. Bilateral Jets seen: yes Normal Post Void Residual: yes Incidental finding in liver: multiple hepatic cysts seen. IMPRESSION: 1. Small amount of postvoid urinary bladder residual. 2. Minimal thickening of the urinary bladder wall measuring 3.4 mm. 3. Multiple bilateral renal calculi. No hydronephrosis. 3. Multiple bilateral renal cysts. There are also hepatic cysts. One of the largest cyst on the left measures 8.0 x 7.4 x 4.6 cm. Correlation for polycystic kidney and liver disease is recommended.
== END | disposition home or self-care (01) ==
LOC: RADUSWWP 07:37
PROVIDERS: ATTEND Urology
DX: N20.0 Calculus of kidney (principal); N28.1 Cyst of kidney, acquired; K76.89 Other specified diseases of liver
CPT/HCPCS: 76770

== ENCOUNTER → 2021-03-25 | Outpatient (CLI) | payer BC ==
--- NOTE | 2021-03-25 20:42 | SFUN ---
SLEEP CENTER FOLLOW UP NOTE DATE OF SERVICE: 03/25/2021 51-year-old gentleman has been followed in Sleep Center for treatment of obstructive sleep apnea-hypopnea syndrome. The patient had recent home sleep apnea test and I discussed results of the home sleep apnea test with him. Home test showed severe abnormalities of respiration with total apnea-hypopnea index 36.9 and oxygen desaturation to 84%. I explained to the patient, it is necessary for him to restart usage of his CPAP equipment. I checked his CPAP unit. It is in automatic regimen and I changed the pressure to the range 5-12 cm of water patient with nasal pillow mask and small pillows of AirFit P10 mask works well for him. [place] Sleepiness Scale today is 9 which is close to the border. PHYSICAL EXAMINATION: GENERAL: Patient in no distress. BP 187/108, HR 84, RR 16, height 6 feet 0, weight 235, BMI 32, temperature 98.3, oxygen saturation at room air 97%. HEENT: PERRLA, EOMI, evaluation of oropharynx showed tongue protrudes midline. NECK: Supple, no JVD. Thyroid is not palpable. LUNGS: Clear to percussion and to auscultation. Good air exchange. No wheezing or rhonchi. HEART: S1, S2 regular. No murmurs, gallops, or rubs. ABDOMEN: Soft and nontender. Bowel sounds are present. No organomegaly appreciated. EXTREMITIES: No clubbing or cyanosis. SENIOR ACCOUNT REPRESENTATIVE: Awake, alert, and oriented X3. Cranial nerves 2 to 7 intact. There is no fasciculation or atrophy. noted. No focal deficits observed. IMPRESSION: 1. Severe obstructive sleep apnea-hypopnea syndrome apnea-hypopnea index 36.9 with oxygen desaturation to 84%. 2. Mild obesity, BMI 32. 3. Hypertension. 4. Anxiety. 5. Acid reflux. 6. History of diverticulitis. 7. Status post kidney stones removed in April 2020. PLAN: 1. Patient should restart usage of his CPAP equipment immediately 2. Sleep hygiene with regular time in bed for at least 7-1/2 to 8 hours. 3. Precautions related to driving. No driving if feeling sleepiness. 4. I will maintain all necessary prescription for PAP supplies including mask, tube, filters. 5. Watching weight. 6. Follow-up visit in 2 months or earlier if patient has any problems. Thank you very much for allowing me to participate in management of your patient. Sincerely, Rolando Colin MD, PhD, FAASM Diplomat of [place] Board of Medical Specialties Sleep Medicine Board of [place] Board of Internal Medicine Business Operations Coordinator of [facility] [place] MMANGELA / NORBERT: [id number] /
== END ==
LOC: SLEEP 16:20
PROVIDERS: ATTEND Internal Medicine
DX: G47.33 Obstructive sleep apnea (adult) (pediatric) (principal); G47.36 Sleep related hypoventilation in conditions classified elsewhere; E66.9 Obesity, unspecified; Z68.32 Body mass index [BMI] 32.0-32.9, adult; F41.9 Anxiety disorder, unspecified; K21.9 Gastro-esophageal reflux disease without esophagitis; Z87.19 Personal history of other diseases of the digestive system; Z87.442 Personal history of urinary calculi; Z98.890 Other specified postprocedural states; Z99.89 Dependence on other enabling machines and devices

== ENCOUNTER → 2022-10-16 | Outpatient (CLI) | payer BC ==
--- NOTE | 2022-10-16 09:33 | MR ---
EXAMINATION TYPE: MR kidney wo/w con DATE OF EXAM: 10/16/2022 COMPARISON: Ultrasound dated 11/12/2020 HISTORY: Cyst on kidneys CONTRAST: Standard multiplanar, multisequence MRI departmental protocol images were obtained without contrast a nd with 10 mL intravenous Gadavist gadolinium contrast. FINDINGS: Right kidney: Right kidney demonstrates craniocaudal measurement of 9.8 cm. Innumerable cysts are see n throughout the right kidney the largest within the upper pole and measures 4.8 cm. A couple of the cysts demonstrate layering peripheral decreased signal indicating hemosiderin component from prior he morrhage. No solid masses are detected. There is no evidence for hydronephrosis. Scattered foci of decreased signal are felt to reflect nonobstructing nephrolithiasis. Left kidney: The left kidney measures craniocaudal dimension of 12.2 cm. Innumerable cysts are noted the largest of which are seen within the lower pole and measure up to 5.3 cm. There are a couple of h yperdense cysts noted on T1-weighted data set as well as layering hemosiderin compatible with a hemor rhagic cyst. Nonobstructing nephrolithiasis identified measuring up to 5 mm lower pole left kidney. N o hydronephrosis present. No solid masses seen. Liver: Innumerable cysts are seen throughout the liver without solid lesion evident. There is hepatic steatosis. Gallbladder: Large gallstones are seen within the gallbladder lumen without wall thickening or perich olecystic fluid. Pancreas spleen and adrenal glands are unremarkable. Abdominal aorta is of normal caliber. No evidence for adenopathy. IMPRESSION: 1. Innumerable bilateral renal cysts seen some which demonstrate hemorrhagic components or hemosideri n. No solid renal masses are present. 2. Multiple hepatic cysts noted as well.
== END | disposition home or self-care (01) ==
LOC: RADMRIMAIN 08:11
PROVIDERS: ATTEND Urology
DX: N28.1 Cyst of kidney, acquired (principal); K76.89 Other specified diseases of liver
CPT/HCPCS: 74183; A9585

== ENCOUNTER → 2022-10-21 | Outpatient (CLI) | payer BC ==
--- NOTE | 2022-10-21 11:06 | P.PN ---
Subjective DATE: 10/21/2022 FOLLOW UP VISIT. Patient with obstructive sleep apnea hypopnea syndrome return to sleep center for follow-up visit. Information from previous visit have been reviewed. Patient is using PAP equipment every night for the whole night, getting PAP supplies in time. The patient does not have significant problems with PAP unit and humidification. She has some nasal pillow mask and headgear is loose. [place] sleepiness scale is 7, which is normal. I checked information from PAP unit and explaining to the patient in details. PAP unit pressure 5-12, average 11.1 cm H2O. Usage is 97% and 70 % for more then 4 hours, average 5 hours per night. Leak is 10.2 l/m, which is in acceptable range. Apnea Hypopnea Index is 2.7, which is normal. MEDICATIONS:1. Metoprolol 100 mg once a day 2. Lisinopril 20 mg once a day 3. Zolpidem 5 mg once a day During physical exam: GENERAL: A pleasant patient without any distress. VITAL SIGNS: BP 194/93, HR 79, RR 12 , weight 236.6, temperature 97.9, oxygen saturation at room air 99 % . HEENT: PERRLA, EOMI.low position of soft palate, [place] 3 . NECK: Supple. No JVD. LUNGS: Clear to percussion and to auscultation. Good air exchange. No wheezing or rhonchi. HEART: S1, S2 regular. ABDOMEN: Soft and nontender.[] EXTREMITIES: No clubbing or cyanosis. TARPER: Awake, alert, and oriented x3. No focal deficit. Impressions: 1. Obstructive sleep apnea-hypopnea syndrome. Patient demonstrated good compliance with treatment, benefiting from treatment. 2. Mild obesity, body mass index 31.5. 3. History of anxiety. 4. Hypertension. 5. Acid reflux. 6. History of diverticulitis. 7. Status post surgical treatment for nephrolithiasis in 2019. Plan: 1. Continue using PAP equipment every night for the whole night. I wrote prescription for different type of nasal pillow mask SwiftFX small size. 2. To change air filter at least 1-2 times per month. 3. PAP unit should stay lower then position of the head. 4. Advised patient to remove all remaining water from humidifier canister daily and make it dry after each usage. Refill canister with fresh distilled water before each usage. 5. Sleep hygiene with regular time in bed for at least 8 hours. 6. Precautions related to driving. No driving if feel any sleepiness. 7. I will maintain prescription for PAP supplies including mask, tube, filters. 8. Follow up visit in 6 months or earlier if patient has any problems. 9. Watching weight. Thank you very much for allowing me to participate in the management of your patient. Rolando Colin MD, PhD, FAASM. Diplomat of [place] [employer] Medicine, Sleep Medicine Board by [place] Board of Internal Medicine Clinical Asst of [facility] [place]
== END ==
LOC: SLEEP 10:23
PROVIDERS: ATTEND Internal Medicine
DX: G47.33 Obstructive sleep apnea (adult) (pediatric) (principal); E66.9 Obesity, unspecified; Z99.89 Dependence on other enabling machines and devices; F41.9 Anxiety disorder, unspecified; I10 Essential (primary) hypertension; K21.9 Gastro-esophageal reflux disease without esophagitis; Z68.31 Body mass index [BMI] 31.0-31.9, adult; Z79.899 Other long term (current) drug therapy; Z87.442 Personal history of urinary calculi; Z87.19 Personal history of other diseases of the digestive system
CPT/HCPCS: 99212

== ENCOUNTER 2022-11-21 11:54 | Emergency (ER) | payer BC ==
[2022-11-21 11:58] VITALS: BP 171/88; PULSE 89; RESP 20; TEMP 98.2
[2022-11-21] MEDS ORDERED: LIDOCAINE 1% INJ 10MG/ML (30 ML VIAL-PF) SQ ONE (12:09)
[2022-11-21] MEDS ORDERED: DIPH,PERTUS(ACELL)TETVAC-LF 0.5 ML VIAL IM ONE (12:09)
--- NOTE | 2022-11-21 12:16 | ED ---
General Adult HPI - General Chief complaint: Wound/Laceration Stated complaint: L finger injury Time Seen by Provider: 11/21/22 12:01 Source: patient, RN notes reviewed Mode of arrival: ambulatory Limitations: no limitations - History of Present Illness Initial comments: 52-year-old male presents emergency Department with chief complaint of left third digit laceration. Patient states that he was working in the yard with the edgers when he got close to the fence and the edgers kicked back hitting the distal portion of his left third digit. He states he wrapped it but did not clean it He reports normal range of motion, normal sensation. He did not take anything for pain and does not want anything at this time. He does not remember his last tetanus shot date does not think he is up-to-date. Past medical history includes hypertension and polycystic kidney disease. - Related Data Home Medications Medication Instructions Recorded Confirmed Catalyn Multivitamin 1 tab PO DAILY 05/25/19 02/28/20 Metoprolol Succinate (ER) [Toprol 100 mg PO DAILY 05/25/19 02/28/20 XL] [place]-3 Fatty Acids/Fish Oil [Fish 1 tab PO DAILY 05/25/19 02/28/20 Oil 1,000 mg Softgel] Renafood Supplement 1 tab PO DAILY 05/25/19 02/28/20 Doxazosin [Cardura] 4 mg PO DAILY 02/26/20 02/28/20 Famotidine [Pepcid] 20 mg PO DAILY 02/26/20 02/28/20 L.acidoph,Paracasei, B.lactis 1 each PO DAILY 02/26/20 02/28/20 [Probiotic] Vitamin D (Unknown Dose) 1 tab PO DAILY 02/26/20 02/28/20 lisinopriL 20 mg PO DAILY 02/26/20 02/28/20 Previous Rx's Medication Instructions Recorded Acetaminophen Tab [Tylenol] 650 mg PO Q6HR PRN tab 06/07/19 Diltiazem Cd [Cardizem CD] 180 mg PO DAILY #30 cap.er.24h 06/07/19 Zolpidem [Ambien] 5 mg PO HS PRN #30 tab 06/07/19 Allergies Allergy/AdvReac Type Severity Reaction Status Date / Time No Known Allergies Allergy Verified 11/21/22 11:58 Review of Systems ROS Statement: Those systems with pertinent positive or pertinent negative responses have been documented in the HPI. ROS Other: All systems not noted in ROS Statement are negative. Past Medical History Past Medical History: Hypertension, Renal Disease Additional Past Medical History / Comment(s): polycystic kidney disease, kidney stone removal with uretal stent placement 05/26/2019 History of Any Multi-Drug Resistant Organisms: None Reported Past Surgical History: Bowel Resection Past Psychological History: No Psychological Hx Reported Smoking Status: Never smoker Past Alcohol Use History: Occasional Past Drug Use History: None Reported - Past Family History Father Family Medical History: Cancer Additional Family Medical History / Comment(s): liver, lung, bone & prostate cancer General Exam Limitations: no limitations General appearance: alert, in no apparent distress Head exam: Present: atraumatic, normocephalic, normal inspection Eye exam: Present: normal appearance ENT exam: Present: normal exam, mucous membranes moist Neck exam: Present: normal inspection. Absent: tenderness, meningismus, lymphadenopathy Respiratory exam: Present: normal lung sounds bilaterally. Absent: respiratory distress, wheezes, rales, rhonchi, stridor Cardiovascular Exam: Present: regular rate, normal rhythm, normal heart sounds. Absent: systolic murmur, diastolic murmur, rubs, gallop, clicks Extremities exam: Present: other (1.5 cm laceration to the left distal third digit of the hand, radial pulses 2+, normal capillary refill) Back exam: Present: normal inspection Neurological exam: Present: alert, oriented X3 Psychiatric exam: Present: normal affect, normal mood Skin exam: Present: warm, dry, normal color, other (1cm laceration to the distal third digit of the left hand) Course Vital Signs 11/21/22 11:56 Temperature 98.2 F Pulse Rate 89 Respiratory 20 Rate Blood Pressure 171/88 O2 Sat by Pulse 98 Oximetry Procedures - Laceration Laceration #1 Consent Obtained: verbal consent Indication: laceration Site: upper extremity (Third digit finger) Size (cm): 2 Description: linear Depth: simple, single layer Anesthetic Used: lidocaine 1% Anesthesia Technique: local infiltration Amount (mls): 2 Pre-repair: wound explored, irrigated extensively Type of Sutures: other (Monofilament) Size of Sutures: 5-0 Number of Sutures: 4 Technique: simple, interrupted Patient Tolerated Procedure: well, no complications Medical Decision Making - Medical Decision Making Was pt. sent in by a medical professional or institution (, INDU, SYNTHETIC STAPLE EXTRUDER, urgent care, hospital, or fci...) When possible be specific @ -No Did you speak to anyone other than the patient for history (EMS, parent, family, police, friend...)? What history was obtained from this source @ -No Did you review nursing and triage notes (agree or disagree)? Why? @ -I reviewed and agree with nursing and triage notes Were old charts reviewed (outside hosp., previous admission, EMS record, old EKG, old radiological studies, urgent care reports/EKG's, fci records)? Report findings @ -No old charts were reviewed Differential Diagnosis (chest pain, altered mental status, abdominal pain women, abdominal pain men, vaginal bleeding, weakness, fever, dyspnea, syncope, headache, dizziness, GI bleed, back pain, seizure, CVA, palpatations, mental health, musculoskeletal)? @ -Differential Musculoskeletal Muscular strain, contusion, ligament sprain, fracture, arthritis, septic arthritis, bursitis, cellulitis, muscle spasm, nerve compression, DVT, arterial occlusion, herpes zoster, electrolyte abnormality, tumor.... This is not meant to be in all inclusive listl EKG interpreted by me (3pts min.). @ -None X-rays interpreted by me (1pt min.). @ -X-ray of left third digit show no acute fracture or radiopaque foreign body CT interpreted by me (1pt min.). @ -None done U/S interpreted by me (1pt. min.). @ -None done What testing was considered but not performed or refused? (CT, X-rays, U/S, labs)? Why? @ -None What meds were considered but not given or refused? Why? @ -None Did you discuss the management of the patient with other professionals (professionals i.e. INDU Diaz, SYNTHETIC STAPLE EXTRUDER, lab, RT, psych nurse, professor of social work, staff radiographer, teacher, investigation officer, case filler)? Give summary @ -No Was smoking cessation discussed for >3mins.? @ -No Was critical care preformed (if so, how long)? @ -No Were there social determinants of health that impacted care today? How? (Homelessness, low income, unemployed, alcoholism, drug addiction, transportation, low edu. Level, literacy, decrease access to med. care, alf, rehab)? @ -No Was there de-escalation of care discussed even if they declined (Discuss DNR or withdrawal of care, Hospice)? DNR status @ -No What co-morbidities impacted this encounter? (DM, HTN, Smoking, COPD, CAD, Cancer, CVA, ARF, Chemo, Hep., AIDS, mental health diagnosis, sleep apnea, morbid obesity)? @ -None Was patient admitted / discharged? Hospital course, mention meds given and route, prescriptions, significant lab abnormalities, going to OR and other pertinent info. @ -Discharged. Patient presented in the emergency department with chief complaint of laceration to his left distal third digit after working with edgers in the yard. Patient does not have any exposed tendon or muscle injury, no injury to the nail. Patient underwent x-ray of the digit which showed no acute fracture or radiopaque foreign body. The 1.5 cm laceration was extensively irrigated and was repaired with 4 simple interrupted sutures. Patient advised to have the sutures removed in about 5 days. Patient discharged in stable condition. Case discussed with my attending, Dr. Pedersen Undiagnosed new problem with uncertain prognosis? @ -No Drug Therapy requiring intensive monitoring for toxicity (Heparin, Nitro, Insulin, Cardizem)? @ -No Were any procedures done? @ -Yes laceration repair with 4 simple interrupted sutures Diagnosis/symptom? @ -Laceration Acute, or Chronic, or Acute on Chronic? @ -Acute Uncomplicated (without systemic symptoms) or Complicated (systemic symptoms)? @ -uncomplicated Side effects of treatment? @ -No Exacerbation, Progression, or Severe Exacerbation? @ -No Poses a threat to life or bodily function? How? (Chest pain, [place], [place], pneumonia, PE, COPD, DKA, ARF, appy, cholecystitis, CVA, Diverticulitis, Homicidal, Suicidal, threat to staff... and all critical care pts) @ -No Disposition Clinical Impression: Laceration Disposition: HOME SELF-CARE Condition: Stable Instructions (If sedation given, give patient instructions): Care For Your Stitches (ED) Additional Instructions: Follow-up with your primary care provider mid next week for suture removal in about 4-5 days from now. Please return to the emergency department for new or worsening symptoms. Is patient prescribed a controlled substance at d/c from ED?: No Referrals: Ollie Moore MD [Primary Care Provider] - 1-2 days Time of Disposition: 13:09
--- NOTE | 2022-11-21 12:39 | XR ---
EXAMINATION TYPE: XR finger LT DATE OF EXAM: 11/21/2022 12:30 PM INDICATION: Patient age:Male; 52 years old; Reason for study: 3rd digit lac; COMPARISON: None TECHNIQUE: Frontal, lateral and oblique views of the left hand were obtained. FINDINGS: Normal alignment of the visualized joints. No acute osseous pathology is identified. No e vidence of soft tissue swelling. No evidence for radiopaque foreign body. Soft tissue defect involving the distal aspect of the third digit. IMPRESSION: 1. No acute osseous pathology. 2. No evidence for radiopaque foreign body.
== END 2022-11-21 13:23 | disposition home or self-care (01) ==
LOC: EC 11:54
DX: S61.213A Laceration without foreign body of left middle finger without damage to nail, initial encounter (principal); I10 Essential (primary) hypertension; Z79.899 Other long term (current) drug therapy; Z23 Encounter for immunization; W22.8XXA Striking against or struck by other objects, initial encounter; Y92.096 Garden or yard of other non-institutional residence as the place of occurrence of the external cause
CPT/HCPCS: 73140; 90715; 99283; 90471; 12001; J2001

== ENCOUNTER → 2024-10-25 | Outpatient (CLI) | payer BC ==
[2024-10-25 15:06] VITALS: BP 161/82; PULSE 70; RESP 16; TEMP 98
--- NOTE | 2024-10-25 15:49 | P.PROGSL ---
Subjective DATE: 10/25/2024 FOLLOW UP VISIT. Patient with obstructive sleep apnea hypopnea syndrome return to sleep center for follow-up visit. Information from previous visit have been reviewed. Patient is using PAP equipment every night for the whole night, getting PAP supplies in time. The patient does not have significant problems with the mask, PAP unit and humidification. [place] sleepiness scale is 10, which is borderline. I checked information from PAP unit. PAP unit pressure 5-12, average 11.2 cm H2O. Usage is 98% for more then 4 hours, average 4.7 hours per night. Leak is 7 l/m, which is in acceptable range. Apnea Hypopnea Index is 2.3, which is normal. MEDICATIONS have been reviewed, please see below. During physical exam: GENERAL: A pleasant patient without any distress. VITAL SIGNS: Please see below, weight is 236 lbs. HEENT: PERRLA, EOMI.low position of soft palate, [place] 3. NECK: Supple. No JVD. LUNGS: Clear to percussion and to auscultation. Good air exchange. No wheezing or rhonchi. HEART: S1, S2 regular. ABDOMEN: Soft and nontender.[] EXTREMITIES: No clubbing or cyanosis. COMPUTER GAME PROGRAMMER: Awake, alert, and oriented x3. No focal deficit. Impressions: 1. Obstructive sleep apnea-hypopnea syndrome. Patient demonstrated great compliance with treatment, benefiting from treatment. 2. Mild obesity, BMI 31.6, weight is the same as during previous visit. 3. History of anxiety. 4. Hypertension. 5. Acid reflux. 6. Postsurgical treatment for nephrolithiasis 2019. 7. History of diverticulitis. Plan: 1. Continue using PAP equipment every night for the whole night. 2. Sleep hygiene with regular time in bed for at least 7.5-8 hours 3. PAP unit should stay lower then position of the head. 4. Advised patient to remove all remaining water from humidifier canister daily and make it dry after each usage. Refill canister with fresh distilled water before each usage. 5. Watching and losing weight. 6. Precautions related to driving. No driving if feel any sleepiness. 7. I will maintain prescription for PAP supplies including mask, tube, filters. 8. Follow up visit in 6 months or earlier if patient has any problems. Thank you very much for allowing me to participate in the management of your patient. Rolando Colin MD, PhD, FAASM. Diplomat of [place] [employer], Sleep Medicine Board by [place] [employer] [facility] [place] Objective - Vital Signs Vital Signs: Vital Signs Temp 98 F 10/25/24 15:04 Pulse 70 10/25/24 15:04 Resp 16 10/25/24 15:04 BP 161/82 10/25/24 15:04 Pulse Ox 97 10/25/24 15:04 FiO2 Intake & Output 10/24/24 10/25/24 10/25/24 18:59 06:59 18:59 Weight 107.048 kg Home Medications: Home Medications Medication Instructions Recorded Confirmed Type Catalyn Multivitamin 1 tab PO DAILY 05/25/19 02/28/20 History Metoprolol Succinate (ER) [Toprol 100 mg PO DAILY 05/25/19 10/25/24 History XL] [place]-3 Fatty Acids/Fish Oil [Fish 1 tab PO DAILY 05/25/19 10/25/24 History Oil 1,000 mg Softgel] Renafood Supplement 1 tab PO DAILY 05/25/19 02/28/20 History Acetaminophen Tab [Tylenol] 650 mg PO Q6HR PRN tab 06/07/19 02/28/20 Rx Diltiazem Cd [Cardizem CD] 180 mg PO DAILY #30 cap.er.24h 06/07/19 10/25/24 Rx Zolpidem [Ambien] 5 mg PO HS PRN #30 tab 06/07/19 02/28/20 Rx Doxazosin [Cardura] 4 mg PO DAILY 02/26/20 10/25/24 History Famotidine [Pepcid] 20 mg PO DAILY 02/26/20 10/25/24 History L.acidoph,Paracasei, B.lactis 1 each PO DAILY 02/26/20 02/28/20 History [Probiotic] Vitamin D (Unknown Dose) 1 tab PO DAILY 02/26/20 10/25/24 History lisinopriL 20 mg PO DAILY 02/26/20 10/25/24 History
== END ==
LOC: 3 N SLEEP 14:38
PROVIDERS: ATTEND Internal Medicine
DX: G47.33 Obstructive sleep apnea (adult) (pediatric) (principal); I10 Essential (primary) hypertension; K21.9 Gastro-esophageal reflux disease without esophagitis; Z99.89 Dependence on other enabling machines and devices; E66.9 Obesity, unspecified; Z68.31 Body mass index [BMI] 31.0-31.9, adult; Z87.442 Personal history of urinary calculi; Z87.19 Personal history of other diseases of the digestive system; Z86.59 Personal history of other mental and behavioral disorders
CPT/HCPCS: 99212